=== PATIENT | female | born 1960 | race Caucasian/White ===

== ENCOUNTER 2018-06-12 06:48 | Emergency (ER) | payer BC, OTHER ==
--- OUTSIDE RECORDS SUMMARY | 2018-06-12 06:51 | XMS REPORT | Clinical Summary ---
:1960 Author Organization [facility] Address [address] [place] [address] Care Team Providers Name Role Phone Aaliyah Bingham MD Primary Care Provider Allergies Active Allergy Reactions Severity Noted Date Comments Cranberry Extract 10/01/2017 Splotchy red spots Dpt-Haemophilus 05/06/2017 Pt was 4 year old.cannot Ps(Tet.Conj.) remember well. Medications Medication Sig Dispensed Refills Start End Date Status Date carvedilol (COREG) 12.5 Take 12.5 mg 0 Active MG tablet by mouth 2 (two) times a day with meals. buPROPion XL Take 300 mg by 0 Active (WELLBUTRIN XL) 300 MG mouth daily. 24 hr tablet pantoprazole (PROTONIX) Take 40 mg by 0 Active 40 MG EC tablet mouth daily. nitroglycerin Place 0.4 mg 0 Active (NITROSTAT) 0.4 MG SL under the tablet tongue every 5 (five) minutes as needed for chest pain. gabapentin (NEURONTIN) Take 600 mg by 0 Active 300 mg capsule mouth nightly. losartan (COZAAR) 25 MG Take 70 mg by 0 Active tablet mouth daily. atorvastatin (LIPITOR) Take 80 mg by 0 Active 80 MG tablet mouth daily. DIGOX 125 mcg tablet TK 1 T PO D 3 Active 8 isosorbide mononitrate Take 30 mg by 0 Active (IMDUR) 30 MG 24 hr mouth daily. tablet clonazepam (KLONOPIN Take by mouth. 0 Active ORAL) apixaban (ELIQUIS) 5 mg Take 1 tablet 60 tablet 12 Active tablet (5 mg total) 8 by mouth 2 (two) times a day. aspirin (ECOTRIN) 81 MG Take 81 mg by 0 02/03/20 Discontinued enteric coated tablet mouth daily. 18 rOPINIRole XL (REQUIP Take 2 mg by 0 09/27/19 Discontinued XL) 2 MG 24 hr tablet mouth nightly. 18 isosorbide mononitrate Take 30 mg by 0 09/27/19 Discontinued (IMDUR) 30 MG 24 hr mouth daily. 18 tablet acetaminophen (TYLENOL) Take 325 mg by 0 09/27/19 Discontinued 325 MG tablet mouth every 6 18 (six) hours as needed for mild pain or headaches. famotidine (PEPCID) 20 Take 1 tablet 60 tablet 0 06/25/19 MG tablet (20 mg total) 8 18 by mouth 2 (two) times a day for 30 days. lorcaserin (BELVIQ) 10 Take 10 mg by 0 09/27/19 Discontinued mg tablet mouth 2 (two) 18 times a day. ALPRAZolam (XANAX) 0.25 Take 1 tablet 0 09/27/19 Discontinued MG tablet by mouth as 8 18 needed for anxiety. clopidogrel (PLAVIX) 75 Take 75 mg by 0 08/01/19 Discontinued mg tablet mouth daily. 18 cranberry extract Theracran 650 mg capsule 0 10/02/19 Discontinued (THERACRAN) 650 mg Take 1 capsule every day by oral route. 18 capsule aspirin (ASPIR-LOW) 81 Aspir-Low 81 mg tablet,delayed release 0 Discontinued MG enteric coated Take 1 tablet every day by oral route. 18 tablet buPROPion XL Wellbutrin XL 300 mg 24 hr tablet, extended release 0 09/26 Discontinued (WELLBUTRIN XL) 300 MG Take 1 tablet every day by oral route. 18 24 hr tablet losartan (COZAAR) 100 TK 1 T PO D 1 09/27/19 Discontinued MG tablet 8 18 clopidogrel (PLAVIX) 75 Take 75 mg by 0 02/03/20 Discontinued mg tablet mouth daily. 18 methylPREDNISolone Take 4 mg by 0 11/05/19 Discontinued (MEDROL DOSEPAK) 4 mg mouth 2 (two) 18 tablet times a day. follow package directions HYDROcodone-acetaminoph Take 1 tablet 0 02/03/20 Discontinued en (NORCO) 10-325 mg by mouth every 18 per tablet 6 (six) hours as needed for moderate pain. carisoprodol (SOMA) 350 Take 350 mg by 0 11/05/19 Discontinued MG tablet mouth 4 (four) 18 times a day as needed for muscle spasms. Active Problems Problem Noted Date Follow-up examination following surgery 03/16/2018 Visit for wound check 12/08/2017 Left lumbar radiculopathy 09/29/2017 HNP (herniated nucleus pulposus), lumbar 09/29/2017 Weakness 05/01/2017 Transient ischemic attack 05/01/2017 Resolved Problems Problem Noted Date Resolved Date Foot drop, left 10/20/2017 01/29/2018 Encounters Date Type Specialty Care Team Description 03/16/2018 Office Visit Neurosurgery Francisco Ruelas Visit for wound check ( Primary Dx); MD Brendan Follow-up examination following surgery 2018 Telephone Neurosurgery Jadyn Cox LVN 02/06/2018 Hospital Encounter Radiology Francisco Ruelas Lumbar radiculopathy MD Brendan 02/03/2018 Hospital Encounter Radiology Lalita, Breast lump Bradford Stoddard MD 02/03/2018 Hospital Encounter Radiology Lalita, Breast lump Bradford Stoddard MD 02/02/2018 Office Visit Neurology Gal Pimentel MD TIA (transient ischemic attack) (Primary Dx) 01/30/2018 Orders Only Francisco Parson MD 01/29/2018 Office Visit Francisco Parson Weakness (Primary Dx); MD Brendan Left lumbar radiculopathy 01/29/2018 Orders Only Francisco Parson Lumbar radiculopathy MD Brendan (Primary Dx) 01/20/2018 Telephone Neurosurgery Jadyn Cox LVN 12/25/2017 Transcribe Orders Access Coselli, Breast lump (Primary Bradford Stoddard MD Dx) 12/08/2017 Office Visit Francisco Parson Lumbar radiculopathy, chronic (Primary Dx); MD Brendan Weakness; Visit for wound check 11/05/2017 Telephone Neurosurgery Jadyn Cox LVN 11/04/2017 Surgery General Surgery Francisco Ruelas POSTERIOR LUMBAR MD Brendan LAMNECTOMY AND DISCECTOMY LEFT L5-S1, POSSIBLE L4-L5 11/04/2017 Anesthesia Event General Surgery Vidal Agosto APRN 11/04/2017 Hospital Encounter General Surgery Francisco Ruelas Herniated lumbar MD Brendan intervertebral disc 10/22/2017 Orders Only Neurosurgery Francisco Ruelas Antalgic gait MD Brendan (Primary Dx) 10/20/2017 Office Visit Neurosurgery Francisco Ruelas HNP (herniated nucleus pulposus), lumbar (Primary Dx); MD Brendan Lumbar radiculopathy, chronic; Weakness; Foot drop, left 09/30/2017 Transcribe Orders Procedural Torey, Cardiology Srikanth Shelton, 09/29/2017 Hospital Encounter Radiology Francisco Ruelas MD 09/29/2017 Pre-Admit Testing Pre-Admission Francisco Ruelas Pre-op testing Appointment Testing MD Brendan (Primary Dx) 09/29/2017 Office Visit Neurosurgery Francisco Ruelas Transient cerebral ischemia, unspecified type (Primary Dx); MD Brendan Weakness; Lumbar radiculopathy, chronic; HNP (herniated nucleus pulposus), lumbar 09/29/2017 Hospital Encounter Radiology Francisco Ruelas Lumbar radiculopathdaisy Cardona MD 09/29/2017 Hospital Encounter Radiology Francisco Ruelas Lumbar radiculopathdaisy Cardona MD 09/29/2017 Orders Only Neurosurgery Francisco Ruelas Lumbar radiculongoc Cardona MD (Primary Dx) 09/26/2017 Abstract Neurosurgery Jadyn Cox LVN 07/31/2017 Office Visit Neurology Gal Pimentel MD Transient cerebral ischemia, unspecified type (Primary Dx) after 06/11/2017 Family History Medical History Relation Name Comments Cancer Father Hypertension Mother Restless legs syndrome Mother Stroke Mother Relation Name Status Comments Father Mother Social History Tobacco Use Types Packs/Day Years Used Date Never Smoker Smokeless Tobacco: Never Used Alcohol Use Drinks/Week oz/Week Comments Yes social Sex Assigned at Date Recorded Not on file Job Start Date Occupation Industry Not on file Not on file Not on file Travel History Travel Start Travel End No recent travel history available. Last Filed Vital Signs Vital Sign Reading Time Taken Blood Pressure 114/78 02/02/2018 2:19 PM [employer] [employer] [facility] Pulse 72 02/02/2018 2:19 PM [employer] [employer] [facility] Temperature 36.5 C (97.7 F) 11/04/2017 11:39 AM CDT Respiratory Rate 17 11/04/2017 11:39 AM CDT Oxygen Saturation 98% 11/04/2017 11:39 AM CDT Inhaled Oxygen Concentration - - Weight 67.6 kg (149 lb) 02/06/2018 11:24 AM [facility] [employer] [facility] Height 157.5 cm (5' 2") 02/02/2018 2:19 PM [employer] [employer] Body Mass Index 27.25 02/06/2018 11:24 AM [facility] [employer] [facility] Plan of Treatment Date Type Specialty Care Team Description 08/03/2018 Office Visit Neurology Gal Pimentel MD [id number] [place] [address] Health Maintenance Due Date Last Done Comments CERVICAL CANCER SCREENING 02/11/1980 COLON CANCER SCREENING 2009 SHINGLES VACCINES (#1) 2009 INFLUENZA VACCINE 09/24/2018 BREAST CANCER SCREENING 02/04/2020 02/03/2018, 02/03/2018, 10/15/2016, Additional history exists Implants Implanted Type Area Professional Engineer Device Shelf Model / Identifier Expiration Serial / Date Lot System Reveal Linq W/Monitors - [id number] Cardiac N/A: [employer] 2018 LINQSYS / Implanted: 05/06/2017 (Quantity not on file) Pacemakers and N/A CARDIAC RHYTHM / Related Products DISEASE MGMT [id number] System Spine Selnt For Dural Selng Exact 5ml Duraseal - [id number] Cardiovascular N/A: [employer]RA [id number] / Implanted: 11/04/2017 (Quantity not on file) Implants N/A LIFESCIENCE / NEURO [id number] Procedures Procedure Name Priority Date/Time Associated Diagnosis Comments MRI LUMBAR SPINE W WO Routine 02/06/2018 12:28 Lumbar radiculopathy Results for this CONTRAST PM [employer] procedure are in the results section. US BREAST COMPLETE Routine 02/03/2018 9:44 Breast lump Results for this RIGHT AM [employer] [employer] [facility] procedure are in the results section. MAMMO BREAST Routine 02/03/2018 9:18 Breast lump Results for this DIAGNOSTIC AM [employer] [employer] [facility] procedure are in TOMOSYNTHESIS the results BILATERAL section. SURGICAL PATHOLOGY Routine 11/04/2017 11:59 Results for this REQUEST AM CDT procedure are in the results section. XR LUMBAR SPINE 1 VW Routine 11/04/2017 8:25 Results for this AM CDT procedure are in the results section. XR LUMBAR SPINE 1 VW Routine 11/04/2017 8:20 Results for this AM CDT procedure are in the results section. XR LUMBAR SPINE 1 VW Routine 11/04/2017 8:10 Results for this AM CDT procedure are in the results section. MA AN ELECTIVE Routine 11/04/2017 8:08 ENDOTRACHEAL AIRWAY AM CDT Procedure Note - Karine Keenan MD - 11/04/2017 8:08 AM CDT Airway Date/Time: 11/04/2017 8:10 AM Performed by: KARINE KEENAN Authorized by: KARINE KEENAN Location: OR Urgency: Elective Difficult Airway: No Anesthesiologist: KARINE KEENAN Preoxygenated with 100% O2: Yes C-spine Precautions Maintained Throughout: No Mask Ventilation: Easy mask Final Airway Type: Endotracheal airway Final Endotracheal Airway: ETT Cuffed: Yes Technique Used: Direct laryngoscopy Devices/Methods Used in Placement: Intubating stylet Insertion Site: Oral Blade Type: Lee Laryngoscope Blade/Videolaryngoscope Blade Size: 2 ETT Size (mm): 7.0 Cuff at minimum occlusion pressure: Yes Measured from: Lips ETT to Lips (cm): 21 Placement Verified by: CO2 detection, direct visualization and equal breath sounds Rapid Sequence Induction (RSI): No Modified RSI: No Number of Attempts at Approach: 1 Single uncomplicated attempt at intubation without apparent damage to soft tissue or teeth LAMINECTOMY, LUMBAR 11/04/2017 7:30 AM CDT Herniated lumbar intervertebral disc Case Notes PRONE POSITION, MICROSCOPE, BARB FRAME Special Needs PRONE POSITION, MICROSCOPE, BARB FRAME ECG 12-LEAD Routine 09/29/2017 5:25 PM Results for this CDT procedure are in the results section. ZZESTIMATED GFR Routine 09/29/2017 4:33 PM Results for this CDT procedure are in the results section. BASIC METABOLIC Routine 09/29/2017 4:33 PM Pre-op testing Results for this PANEL CDT procedure are in the results section. CBC HEMOGRAM Routine 09/29/2017 4:33 PM Pre-op testing Results for this CDT procedure are in the results section. XR LUMBAR SPINE AP Routine 09/29/2017 1:35 PM Lumbar radiculopathy Results for this LATERAL FLEXION AND CDT procedure are in EXTENSION the results section. XR SPINE SCOLIOSIS Routine 09/29/2017 1:35 PM Lumbar radiculopathy Results for this 2-3 VIEWS CDT procedure are in the results section. MRI SPINE EXTERNAL Routine 09/16/2017 3:50 PM Results for this STUDY CDT procedure are in the results section. after 06/11/2017 Results MRI Lumbar Spine W Wo Contrast (02/06/2018 12:28 PM [facility] TECH) Narrative Performed At EXAMINATION: MRI LUMBAR SPINE W WO CONTRAST [facility] CLINICAL HISTORY: M54.16 Radiculopathylumbar region, lumbar radiculopathy COMPARISON:None TECHNIQUE: Multiplanar multisequence nonenhanced and contrast enhanced MRI examination was performed of the lumbar spine. FINDINGS: There are 5 non-rib bearing lumbar type vertebrae. Status post left foraminotomy. No fracture. No subluxation. No suspicious osseous abnormality. Modic type II endplate changes L1 to and L5-S1. No subluxation.No suspicious osseous lesions. Conus medullaris terminates at the level of L2. No suspicious enhancement. Evaluation of the visualized soft tissues demonstrates no mass, adenopathy or aneurysm. Axial images through the disc spaces demonstrate the following: L1-L2: Small disc bulge without significant spinal canal, subarticular zone, or neural foraminal stenosis. L2-L3: No significant posterior disc disease, spinal canal, subarticular zone, or neural foraminal stenosis. L3-L4: No significant posterior disc disease, spinal canal, subarticular zone, or neural foraminal stenosis. Mild facet arthropathy. L4-L5: Severe left and moderate right facet arthropathy and small disc bulge contributes to mild bilateral neural foraminal stenosis without significant spinal canal or subarticular zone stenosis. L5-S1: Status post left foraminotomy. There is enhancement of the left foraminotomy site, consistent with postsurgical epidural fibrosis, with effacement of perineural fat. There is moderate left neural foraminal stenosis secondary to endplate osteophytes, disc bulge, and facet arthropathy. Fluid at the left foraminotomy site also in part contributes to left neural foraminal stenosis. There is no significant subarticular zone stenosis. No sig nificant spinal canal or right subarticular zone stenosis. There is mild right neural foraminal stenosis secondary to small disc bulge, endplate osteophytes, and moderate facet arthropathy. IMPRESSION: 1. Post surgical changes L5-S1 status post left foraminotomy. There is effacement of perineural fat at this level with enhancement, consistent with postsurgical epidural fibrosis. Disc bulge, endplate osteophytes, and residual facet arthropathy contributes to moderate left neural foraminal stenosis at this level. 2. Additional multilevel degenerative changes above with few levels of mild neural foraminal stenosis. [id number] Procedure Note Hm Interface, Radiology Results Incoming - 02/06/2018 2:27 PM [facility] TECH EXAMINATION: MRI LUMBAR SPINE W WO CONTRAST CLINICAL HISTORY: M54.16 Radiculopathy lumbar region, lumbar radiculopathy COMPARISON: None TECHNIQUE: Multiplanar multisequence nonenhanced and contrast enhanced MRI examination was performed of the lumbar spine. FINDINGS: There are 5 non-rib bearing lumbar type vertebrae. Status post left foraminotomy. No fracture. No subluxation. No suspicious osseous abnormality. Modic type II endplate changes L1 to and L5-S1. No subluxation. No suspicious osseous lesions. Conus medullaris terminates at the level of L2. No suspicious enhancement. Evaluation of the visualized soft tissues demonstrates no mass, adenopathy or aneurysm. Axial images through the disc spaces demonstrate the following: L1-L2: Small disc bulge without significant spinal canal, subarticular zone, or neural foraminal stenosis. L2-L3: No significant posterior disc disease, spinal canal, subarticular zone, or neural foraminal stenosis. L3-L4: No significant posterior disc disease, spinal canal, subarticular zone, or neural foraminal stenosis. Mild facet arthropathy. L4-L5: Severe left and moderate right facet arthropathy and small disc bulge contributes to mild bilateral neural foraminal stenosis without significant spinal canal or subarticular zone stenosis. L5-S1: Status post left foraminotomy. There is enhancement of the left foraminotomy site, consistent with postsurgical epidural fibrosis, with effacement of perineural fat. There is moderate left neural foraminal stenosis secondary to endplate osteophytes, disc bulge, and facet arthropathy. Fluid at the left foraminotomy site also in part contributes to left neural foraminal stenosis. There is no significant subarticular zone stenosis. No significant spinal canal or right subarticular zone stenosis. There is mild right neural foraminal stenosis secondary to small disc bulge, endplate osteophytes, and moderate facet arthropathy. IMPRESSION: 1. Post surgical changes L5-S1 status post left foraminotomy. There is effacement of perineural fat at this level with enhancement, consistent with postsurgical epidural fibrosis. Disc bulge, endplate osteophytes, and residual facet arthropathy contributes to moderate left neural foraminal stenosis at this level. 2. Additional multilevel degenerative changes above with few levels of mild neural foraminal stenosis. [id number] Performing Organization Address City/[facility] Centercode Phone Number [facility] [address] [place] [address] US Breast Complete Right (02/03/2018 9:44 AM [facility]TRAL SERVICES TECH) Narrative Performed At PROCEDURE: MAMMO BREAST DIAGNOSTIC TOMOSYNTHESIS BILATERAL, US BREAST [facility] COMPLETE RIGHT Right real-time whole breast sonography included all four quadrants and the retroareolar region under close supervision by the radiologist. Computer aided detection was utilized for the interpretation. HISTORY:57-year-old female presenting with right breast tenderness and palpable lump in the lateral right breast. Patient has a history of bilateral reduction mammoplasty. COMPARISON: 10/15/2016-02/03/2012 DENSITY: There are scattered fibroglandular tissue. FINDINGS Mammogram:A triangular marker was placed in the right upper-outer quadrant at posterior depth, indicating the site of the palpable area of concern. This marker correlates with benign-appearing fatty tissue by mammography. There is no significant change in either breast when compared to previous examinations. Bilateral post reduction mammoplasty changes are demonstrated in both breasts. There is a radiopaque medical assisting instructor in the inner posterior left breast which partially obscures breast parenchyma. Ultrasound: No suspicious cystic or solid masses were seen in the right breast. Specifically, no sonographic correlate is identified in the palpable area of concern, located in the right upper-outer quadrant. IMPRESSION: 1. Palpable area of concern in the right breast correlates with benign-appearing fatty tissue. Clinical correlation is recommended. 2. No mammographic evidence of malignancy in either breast. RECOMMENDATION: Annual mammography. BI-RADS 2: BENIGN This report was dictated by Shama Urias M.D., radiology fellow, under the supervision of, Deanna Peña M.D. staff radiologist. [facility]-[id number] Performing Organization Address City/[facility]/Zipcode Phone Number [facility] [address] [place] [address] Mammo Breast Diagnostic Tomosynthesis Bilateral (02/03/2018 9:18 AM [facility]TRAL SERVICES TECH) Narrative Performed At PROCEDURE: MAMMO BREAST DIAGNOSTIC TOMOSYNTHESIS BILATERAL, US BREAST HM [facility] COMPLETE RIGHT Right real-time whole breast sonography included all four quadrants and the retroareolar region under close supervision by the radiologist. Computer aided detection was utilized for the interpretation. HISTORY:57-year-old female presenting with right breast tenderness and palpable lump in the lateral right breast. Patient has a history of bilateral reduction mammoplasty. COMPARISON: 10/15/2016-02/03/2012 DENSITY: There are scattered fibroglandular tissue. FINDINGS Mammogram:A triangular marker was placed in the right upper-outer quadrant at posterior depth, indicating the site of the palpable area of concern. This marker correlates with benign-appearing fatty tissue by mammography. There is no significant change in either breast when compared to previous examinations. Bilateral post reduction mammoplasty changes are demonstrated in both breasts. There is a radiopaque medical assisting instructor in the inner posterior left breast which partially obscures breast parenchyma. Ultrasound: No suspicious cystic or solid masses were seen in the right breast. Specifically, no sonographic correlate is identified in the palpable area of concern, located in the right upper-outer quadrant. IMPRESSION: 1. Palpable area of concern in the right breast correlates with benign-appearing fatty tissue. Clinical correlation is recommended. 2. No mammographic evidence of malignancy in either breast. RECOMMENDATION: Annual mammography. BI-RADS 2: BENIGN This report was dictated by Shama Urias M.D., radiology fellow, under the supervision of, Deanna Peña M.D. staff radiologist. [facility]-[id number] Performing Organization Address City/State/Zipcode Phone Number [facility] [address] [place] [address] Surgical pathology request (11/04/2017 11:59 AM CDT) [facility] DEPARTMENT OF PATHOLOGY AND GENOMIC MEDICINE Surgical pathology report See link below for PDF [facility] DEPARTMENT OF Lab Report PATHOLOGY AND GENOMIC MEDICINE Result status This is Final Report [facility] DEPARTMENT OF for [id number] PATHOLOGY AND GENOMIC MEDICINE Performing Organization Address City/State/Zipcode Phone Number [facility] DEPARTMENT OF PATHOLOGY AND [address] [place] [address] GENOMIC MEDICINE XR Lumbar Spine 1 Vw (11/04/2017 8:25 AM CDT)Only the most recent of3 resultswithin the time period is included. Narrative Performed At EXAMINATION: XR LUMBAR SPINE 1 VW [facility] CLINICAL HISTORY: Lumbar region back pain and radiculopathy COMPARISON:Intraoperative exam from earlier today. FINDINGS: There are radiopaque instruments in the posterior paraspinal soft tissues at the L5 level. One instrument tip overlaps the posterior inferior L5 vertebral body. There are degenerative changes in the lumbar spine. IMPRESSION: Lateral intraoperative radiograph of the lumbar spine for localization during lumbar spine surgery. [facility]-[id number] Procedure Note Hm Interface, Radiology Results Incoming - 11/04/2017 11:54 AM CDT EXAMINATION: XR LUMBAR SPINE 1 VW CLINICAL HISTORY: Lumbar region back pain and radiculopathy COMPARISON: Intraoperative exam from earlier today. FINDINGS: There are radiopaque instruments in the posterior paraspinal soft tissues at the L5 level. One instrument tip overlaps the posterior inferior L5 vertebral body. There are degenerative changes in the lumbar spine. IMPRESSION: Lateral intraoperative radiograph of the lumbar spine for localization during lumbar spine surgery. [facility]-[id number] Performing Organization Address [facility] Centercomi Phone Number [facility] [address] [place] [address] ECG 12 lead (09/29/2017 5:25 PM CDT) Ventricular rate 59 [facility] Atrial rate 59 [facility] MA interval 136 [facility] QRSD interval 74 [facility] QT interval 410 [facility] QTC interval 405 [facility] P axis 1 60 [facility] QRS axis 1 16 [facility] T wave axis 57 [facility] EKG impression Sinus bradycardia-Otherwise normal ECG-In [facility] MUSE automated comparison with ECG of 25-MAY-2017 00:46,-No significant change was found- Performing Organization Address [facility] Centercode Phone Number [facility] MUSE [address] [place] [address] Estimated GFR (09/29/2017 4:33 PM CDT) GFR Non Af Amer 86 mL/min/1.73 m2 [facility] DEPARTMENT OF PATHOLOGY AND GENOMIC MEDICINE GFR Af Amer >90 mL/min/1.73 m2 [facility] DEPARTMENT OF Comment: PATHOLOGY AND GENOMIC Chronic kidney disease: <60 mL/min/1.73m2 MEDICINE Kidney failure: <15 mL/min/1.73m2 The estimated GFR is calculated from the IDMS-traceable Modification of Diet in Renal Disease Equation. The accuracy of the calculation is poor when the creatinine is normal. Calculated values >90 mL/min/1.73m2 are not reported. This equation has not been validated in children (<18 years), women, the elderly (>70 years), or ethnic groups other than Caucasians and Americans. Specimen Plasma specimen Performing Organization Address City/[facility]/Zipcode Phone Number [facility] DEPARTMENT OF PATHOLOGY AND [address] [place] [phone] [place] CBC hemogram (09/29/2017 4:33 PM CDT) WBC 11.10 (H) 4.50 - 11.00 k/uL [facility] DEPARTMENT OF PATHOLOGY AND GENOMIC MEDICINE RBC 4.30 4.20 - 5.50 m/uL [facility] DEPARTMENT OF PATHOLOGY AND GENOMIC MEDICINE HGB 13.3 12.0 - 16.0 g/dL [facility] DEPARTMENT OF PATHOLOGY AND GENOMIC MEDICINE HCT 40.4 37.0 - 47.0 % [facility] DEPARTMENT OF PATHOLOGY AND GENOMIC MEDICINE MCV 94.0 82.0 - 100.0 fL [facility] DEPARTMENT OF PATHOLOGY AND GENOMIC MEDICINE MCH 30.9 27.0 - 34.0 pg [facility] DEPARTMENT OF PATHOLOGY AND GENOMIC MEDICINE MCHC 32.9 31.0 - 37.0 g/dL [facility] DEPARTMENT OF PATHOLOGY AND GENOMIC MEDICINE RDW - SD 44.1 37.0 - 55.0 fL [facility] DEPARTMENT OF PATHOLOGY AND GENOMIC MEDICINE MPV 10.3 8.8 - 13.2 fL [facility] DEPARTMENT OF PATHOLOGY AND GENOMIC MEDICINE Platelet count 309 150 - 400 k/uL [facility] DEPARTMENT OF PATHOLOGY AND GENOMIC MEDICINE Nucleated RBC 0.00 /100 WBC [facility] DEPARTMENT OF PATHOLOGY AND GENOMIC MEDICINE Specimen Blood Performing Organization Address City/[facility]/Zipcode Phone Number [facility] DEPARTMENT OF PATHOLOGY AND [address] [place] [id number] [place] Basic metabolic panel (09/29/2017 4:33 PM CDT) Sodium 138 135 - 148 mEq/L [facility] DEPARTMENT OF PATHOLOGY AND GENOMIC MEDICINE Potassium 4.1 3.5 - 5.0 mEq/L [facility] DEPARTMENT OF PATHOLOGY AND GENOMIC MEDICINE Chloride 99 98 - 112 mEq/L [facility] DEPARTMENT OF PATHOLOGY AND GENOMIC MEDICINE CO2 28 24 - 31 mEq/L [facility] DEPARTMENT OF PATHOLOGY AND GENOMIC MEDICINE Anion gap 11@ANIO 7 - 15 mEq/L [facility] DEPARTMENT OF PATHOLOGY AND GENOMIC MEDICINE BUN 16 6 - 20 mg/dL [facility] DEPARTMENT OF PATHOLOGY AND GENOMIC MEDICINE Creatinine 0.7 0.5 - 0.9 mg/dL [facility] DEPARTMENT OF PATHOLOGY AND GENOMIC MEDICINE Glucose 69 65 - 99 mg/dL [facility] DEPARTMENT OF PATHOLOGY AND GENOMIC MEDICINE Calcium 9.5 8.3 - 10.2 mg/dL [facility] DEPARTMENT OF PATHOLOGY AND GENOMIC MEDICINE Specimen Plasma specimen Performing Organization Address City/[facility] Phone Number [facility] DEPARTMENT OF PATHOLOGY AND [address] [place] [address] [facility] XR Lumbar Spine Ap Lateral Flexion And Extension (09/29/2017 1:35 PM CDT) Narrative Performed At EXAMINATION:XR LUMBAR SPINE AP LATERALFLEXION AND EXTENSION [facility] CLINICAL HISTORY:M54.16 Radiculopathylumbar region, Back painprior surgerynew or progressive sx COMPARISON:None. IMPRESSION: There are 5 nonrib-bearing lumbar vertebrae. There is diffuse lumbar disc space narrowing with anterior osteophyte formation. There is minimal anterior spondylolisthesis at L5-S1. There is slight movement upon flexion and extension with range of motion of approximately 5 to 6 mm There is no obvious spondylolysis defect. There is no compression fracture [facility]-[id number] Procedure Note Interface, Radiology Results Incoming - 09/29/2017 2:42 PM CDT EXAMINATION: XR LUMBAR SPINE AP LATERAL FLEXION AND EXTENSION CLINICAL HISTORY: M54.16 Radiculopathy lumbar region, Back pain prior surgery new or progressive sx COMPARISON: None. IMPRESSION: There are 5 nonrib-bearing lumbar vertebrae. There is diffuse lumbar disc space narrowing with anterior osteophyte formation. There is minimal anterior spondylolisthesis at L5-S1. There is slight movement upon flexion and extension with range of motion of approximately 5 to 6 mm There is no obvious spondylolysis defect. There is no compression fracture [facility]-[id number] Performing Organization Address [facility] Centercode Phone Number [facility] [address] [place] [address] XR Spine Scoliosos 2-3 Views (09/29/2017 1:35 PM CDT) Narrative Performed At EXAMINATION:XR SPINE SCOLIOSIS 2-3 VIEWS [facility] CLINICAL HISTORY:M54.16 Radiculopathylumbar region, radiculopathy COMPARISON:None. Frontal and lateral views of entire spine was obtained per scoliosis protocol. IMPRESSION: There is mild broad-based for degree leftward curvature at T12-L1. No significant scoliosis identified. Fusion hardware is noted in the lower cervical spine from C5 to C7. There is 0 coronal balance. Femoral head heights are symmetric. Aorta is tortuous. Cardiac implant device is noted in the anterior chest for monitoring. Lungs are clear. Bowel gas pattern is nonobstructive. Lateral image shows no compression deformity. There is 1 cm negative sagittal balance. [facility]-[id number] Procedure Note Hm Interface, Radiology Results Incoming - 09/29/2017 3:10 PM CDT EXAMINATION: XR SPINE SCOLIOSIS 2-3 VIEWS CLINICAL HISTORY: M54.16 Radiculopathy lumbar region, radiculopathy COMPARISON: None. Frontal and lateral views of entire spine was obtained per scoliosis protocol. IMPRESSION: There is mild broad-based for degree leftward curvature at T12-L1. No significant scoliosis identified. Fusion hardware is noted in the lower cervical spine from C5 to C7. There is 0 coronal balance. Femoral head heights are symmetric. Aorta is tortuous. Cardiac implant device is noted in the anterior chest for monitoring. Lungs are clear. Bowel gas pattern is nonobstructive. Lateral image shows no compression deformity. There is 1 cm negative sagittal balance. [facility]-[id number] Performing Organization Address [facility]/Zipcode Phone Number [facility] [address] [place] [address] MRI Spine External Study (09/16/2017 3:50 PM CDT) Narrative Performed At This exam was not acquired at a [facility] facility and has not been [facility] interpreted by a [facility] Provider.The exam was imported into our imaging system for comparisons purposes. Performing Organization Address City/[facility]/Zipcode Phone Number [facility] [address] [place] [address] after 06/11/2017 Insurance Payer Benefit Plan / Group Subscriber ID Type Phone Address AETNA AETNA HMO,POS,EPO, MC/EC xxxxxxxxxx HMO Advance Directives Patient has advance care planning documents, and code status on file. For more information, please contact:[place] [address] Code Status Date Activated Date Inactivated Comments Full Code 11/04/2017 9:40 AM 11/04/2017 7:41 PM Code Status decision reached by: Patient
--- OUTSIDE RECORDS SUMMARY | 2018-06-12 06:52 | XMS REPORT | Summary of Care ---
:1960 Author Organization [facility] Internal Medicine [facility] Address [address], [address] [place] [address]- Encounter HQ Benitantr_jed(FIN) [id number] Date(s): 04/15/18 - 04/16/18 [facility] Internal [facility] [address] [place] [address]- [phone] Vital Signs No data available for this section Problem List Condition Effective Dates Status Health Status Informant Acute cystitis(Confirmed) Active Acute sinus infection(Confirmed) Active Acute pharyngitis(Confirmed) Active Adjustment disorder with depressed Active mood(Confirmed) Adjustment disorder with Active anxiety(Confirmed) A-fib(Confirmed) Active CRP elevated(Confirmed) Active Thrush(Confirmed) Active Cognitive changes(Confirmed) Active Low serum vitamin D(Confirmed) Active Dyspnea(Confirmed) Active H/O Prinzmetal angina(Confirmed) Active Fever blister(Confirmed) Active H/O TIA (transient ischemic attack) Resolved and stroke(Confirmed) Hypertension(Confirmed) Active Hypoxemia(Confirmed) Active IGT (impaired glucose Active tolerance)(Confirmed) Lumbar strain(Confirmed) Active Left leg weakness(Confirmed) Active Myalgia(Confirmed) Active Obesity(Confirmed) Active Cough(Confirmed) Active DANNY (obstructive sleep Active apnea)(Confirmed) Osteopenia(Confirmed) Active Overweight(Confirmed) Active Paresthesia(Confirmed) Active Lumbar herniated disc(Confirmed) Active Spondylosis(Confirmed) Active Transient ischemic attack(Confirmed) Active Restless legs syndrome Active (RLS)(Confirmed) Allergies, Adverse Reactions, Alerts Substance Reaction Severity Status tetanus toxoid Active Medications No data available for this section Results No data available for this section Immunizations No data available for this section Procedures Procedure Date Related Diagnosis Body Site Status Lumpectomy 10/2017 Completed Upper GI endoscopy 08/20/13 Completed Colonoscopy 02/05/10 Completed Biopsy of breast1 Completed Lumpectomy2 Completed Primary fusion of cervical spine3 Completed Reduction mammoplasty4 Completed 1(Left) Results Benign, [id number] Social History Social History Type Response Substance Abuse Use: None. Exercise Exercise frequency: Daily. Exercise type: Walking. Employment/School Status: Retired. Work/School description: [employer]. Alcohol Current, Type Liquor.1 Smoking Status Never smoker; Exposure to Tobacco Smoke None; Cigarette Smoking Last 365 Days No; Reg Smoking Cessation Counseling No entered on: 03/27/18 1social drinker Assessment and Plan No data available for this section
--- OUTSIDE RECORDS SUMMARY | 2018-06-12 06:52 | XMS REPORT | Summary of Care ---
:1960 Author Organization [facility] Address [address] [place], [place] [id number] Encounter HQ Edgar_jed(FIN) [id number] Date(s): 04/15/18 - 04/15/[address] Discharge Disposition: Home or Self Care Attending Physician: Aaliyah Bingham MD Referring Physician: Aaliyah Bingham MD Vital Signs No data available for this [...] Completed Reduction mammoplasty4 Completed 1(Left) Results Benign, [id number] Social History Social History Type Response Substance Abuse Use: None. Exercise Exercise frequency: Daily. Exercise type: Walking. Employment/School Status: Retired. Work/School description: [employer]. Alcohol Current, Type Liquor.1 Smoking Status Never smoker; Exposure to Tobacco Smoke None; Cigarette Smoking Last 365 Days No; Reg Smoking Cessation Counseling No entered on: 03/27/18 1social drinker Assessment and Plan No data available for this section
--- OUTSIDE RECORDS SUMMARY | 2018-06-12 06:52 | XMS REPORT | Continuity of Care Document ---
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 10/19/19 [facility] ADJUSTMENT 18 DISORDER WITH ANX Paresthesia of 09/21/19 04/05/2018 [facility] skin 18 [place] R20.2 - Active 09/13/19 [facility] PARESTHESIA OF 18 [place] SKIN NEUROPSYCHOLOGY Active 02/24/19 [facility] 01 Acute cystitis Active Problem 05/29/2018 Medical Group, [facility] Acute sinus Active Problem 05/29/2018 infection Medical Group, [facility] Acute pharyngitis Active Problem 05/29/2018 Medical Group, [facility] Adjustment Active Problem 05/29/2018 disorder with Medical depressed mood Group, [facility] Adjustment Active Problem 05/29/2018 disorder with Medical anxiety Group, [facility] CRP elevated Active Problem 05/29/2018 Medical Group, [facility] Thrush Active Problem 05/29/2018 [facility] Group, [facility] Cognitive changes Active Problem 05/29/2018 Medical Group, [facility] Dyspnea Active Problem 05/29/2018 Medical Group, [facility] H/O Prinzmetal Active Problem 05/29/2018 angina Medical Group, [facility] Fever blister Active Problem 05/29/2018 Medical Group, [facility] H/O TIA and Resolved Problem 05/29/2018 stroke(<span Medical ID="[id number]"> Group, Confirmed</span>) [facility] Hypertension Active Problem 05/29/2018 Medical Group, [facility] Hypoxemia Active Problem 05/29/2018 Medical Group, [facility] IGT (<span Active Problem 05/29/2018 ID="[id number]"> Medical Confirmed</span>) Group, [facility] Lumbar strain Active Problem 05/29/2018 [facility], [facility],Mis abdoul Neuro Left leg weakness Active Problem 05/29/2018 [facility] Myalgia Active Problem 05/29/2018 Medical Group, [facility] Obesity Active Problem 05/29/2018 Medical Group, [facility] Cough Active Problem 05/29/2018 Medical Group, [facility] DANNY (<span Active Problem 05/29/2018 ID="[id number]">C Medical onfirmed</span>) Group, [facility] Osteopenia Active Problem 05/29/2018 Medical Group, [facility] Overweight Active Problem 05/29/2018 Medical Group, [facility] Paresthesia Active Problem 05/29/2018 [facility] Neuro Lumbar herniated Active Problem 05/29/2018 disc 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[place] disc degeneration, lumbar region Acute cystitis Active Problem 05/04/2018 Medical Group, Akash Sims [facility] Acute sinus Active Problem 05/04/2018 infection Medical Group, Akash Sims [facility] Acute pharyngitis Active Problem 05/04/2018 Medical Group, Akash Simser Neuro Adjustment Active Problem 05/04/2018 disorder with Medical depressed mood Group, Akash Simser Neuro Adjustment Active Problem 05/04/2018 disorder with Medical anxiety Group, Akash Sims [facility] CRP elevated Active Problem 05/04/2018 Medical Group, FRANCESErma Akash Paul [facility]cher [facility] Thrush Active Problem 05/04/2018 Medical Group, NAN PaulAkash ischer Neuro Cognitive changes Active Problem 05/04/2018 Medical Group, Akash Sims ischer Neuro Dyspnea Active Problem 05/04/2018 Medical Group, Akash Sims ischer Neuro H/O Prinzmetal Active Problem 05/04/2018 angina Medical Group, FRANCESErma Akash Paul [facility] Fever blister Active Problem 05/04/2018 Medical Group, Akash Sims ischer Neuro H/O TIA and Resolved Problem 05/04/2018 stroke(<span Medical ID="[id number]"> Group, Confirmed</span>) FRANCESErma PaulAkash ischer Neuro Hypertension Active Problem 05/04/2018 Medical Group, NAN HooverannAkash ischer Neuro Hypoxemia Active Problem 05/04/2018 Medical Group, NAN HooverannAkash ischer Neuro IGT (<span Active Problem 05/04/2018 ID="[id number]"> Medical Confirmed</span>) Group, NAN PaulAkash ischer Neuro Myalgia Active Problem 05/04/2018 Medical Group, NAN PaulAkash ischer Neuro Obesity Active Problem 05/04/2018 Medical Group, FRANCESErma [place] [facility] Cough Active Problem 05/04/2018 Medical Group, NAN HooverannAkash ischer Neuro DANNY (<span Active Problem 05/04/2018 ID="[id number]">C Medical onfirmed</span>) Group, NAN PaulAkash ischer Neuro Osteopenia Active Problem 05/04/2018 Medical Group, NAN PaulM ischer Neuro Overweight Active Problem 05/04/2018 Medical Group, NAN PaulM ischer Neuro Spondylosis Active Problem 05/04/2018 Medical Group, NAN PaulAkash ischer Neuro Transient ischemic Active Problem 05/04/2018 attack Medical Group, NAN PaulM ischer Neuro Restless legs Active Problem 05/04/2018 syndrome (<span Medical ID="[id number]"> Group,MH Confirmed</span>) Akash Sims ischer Neuro Medications Medication Details Route Status Patient Ordering Order Source Instructions Provider Date vilazodone 20 mg=1 Active MH hydrochloride 20 tab, PO, 019 Medical MG Oral Tablet Daily, # 7 Group [Viibryd] tab, 0 Refill(s), given to patient vilazodone 20 mg=1 Active MH hydrochloride 20 tab, PO, 019 Medical MG Oral Tablet Daily, # 30 Group [Viibryd] tab, 1 Refill(s), Pharmacy: [facility] [id number] valacyclovir 1000 2 gm=2 tab, Active MH MG Oral Tablet PO, Q12H, 019 Medical [Valtrex] take 2 po Group ALEXANDRA for fever blister then repeat in 12 hours . total 4 per course.,, # 8 tab, 5 Refill(s), Pharmacy: [facility] [address] rOPINIRole 2 mg See Active MH oral tablet, Instruction 019 Medical extended release s, TAKE 1 Group TABLET BY MOUTH DAILY, # 90 tab, 3 Refill(s), Pharmacy: [facility] [address] losartan 100 mg =1 tab, PO, Active MH oral tablet Daily, # 90 019 Medical tab, 3 Group Refill(s), Pharmacy: [facility] [address] lorcaserin 10 mg=1 Active MH hydrochloride 10 tab, PO, 019 Medical MG Oral Tablet BID, # 60 Group [Belviq] tab, 2 Refill(s) carvedilol 12.5 See Active MH mg oral tablet Instruction 019 Medical s, TAKE 1 Group TABLET BY MOUTH TWICE DAILY, # 180 tab, 2 Refill(s), Pharmacy: [facility] [address] buPROPion 300 =1 tab, PO, Active MH mg/24 hours (XL) Daily, # 90 019 Medical oral tablet, tab, 3 Group extended release Refill(s), Pharmacy: [facility] [address] isosorbide 30 mg=1 Active MH mononitrate 30 mg tab, PO, 019 Medical oral tablet, QAM, # 90 Group extended release tab, 3 Refill(s), [facility] [address] atorvastatin 80 80 mg=1 Active MH MG Oral Tablet tab, PO, 019 Medical [Lipitor] Bedtime, # Group 90 tab, 3 Refill(s), [facility] [address] dexlansoprazole 60 mg=1 Active MH 60 MG Enteric cap, PO, 019 Medical Coated Capsule Daily, # 30 Group [Dexilant] cap, 11 Refill(s), [facility] [id number] Solu-Medrol 40 mg, Inactive MH Route: IM, 018 Medical ONCE, Group Dosing Weight 66.477, kg, Start date: 09/12/17 14:17:00 CDT, Stop date: 09/12/17 14:17:00 CDT clonazePAM 0.25 0.25 mg=1 No Longer MH mg oral tablet, tab, PO, Active 018 Medical disintegrating TID, prn Group anxiety, # 30 tab, 0 Refill(s) tramadol 50 mg=1 No Longer MH hydrochloride 50 tab, PO, Active 018 Medical MG Oral Tablet Q6H, PRN Group Pain, X 10 day, # 40 tab, 0 Refill(s) Carisoprodol 350 350 mg=1 No Longer MH MG Oral Tablet tab, PO, Active 018 Medical [Soma] Bedtime, X Group 21 day, # 21 tab, 0 Refill(s) meloxicam 15 mg 15 mg=1 No Longer MH oral tablet tab, PO, Active 018 Medical Daily, # 30 Group tab, 1 Refill(s), [facility] [address] lorcaserin 10 mg=1 Active MH hydrochloride 10 tab, PO, 018 Medical MG Oral Tablet BID, # 60 Group [Belviq] tab, 1 Refill(s) lorcaserin 10 mg=1 Active MH hydrochloride 10 tab, PO, 018 Medical MG Oral Tablet BID, # 60 Group [Belviq] tab, 1 Refill(s) losartan 100 mg 100 mg=1 Active MH oral tablet tab, PO, 018 Medical Daily, # 90 Group tab, 1 Refill(s), Pharmacy: [facility] [id number] atorvastatin 80 80 mg=1 Active MH MG Oral Tablet tab, PO, 018 Medical [Lipitor] Bedtime, # Group 30 tab, 0 Refill(s) clopidogrel 75 MG 75 mg=1 Active MH Oral Tablet tab, PO, 018 Medical [Plavix] Daily, # 30 Group tab, 0 Refill(s) lorcaserin 10 mg=1 Active MH hydrochloride 10 tab, PO, 018 Medical MG Oral Tablet BID, # 60 Group [Belviq] tab, 2 Refill(s) lorcaserin 10 mg=1 Active MH hydrochloride 10 tab, PO, 018 Medical MG Oral Tablet BID, # 60 Group [Belviq] tab, 2 Refill(s) pantoprazole 40 See Active MH mg oral enteric Instruction 018 Medical coated tablet s, # 90 Group tab, TAKE 1 TABLET BY MOUTH DAILY, Pharmacy: [facility] [id number] valacyclovir 1000 2 gm=2 tab, Active MH MG Oral Tablet PO, Q12H, 017 Medical [Valtrex] take 2 po Group ALEXANDRA for fever blister then repeat in 12 hours . total 4 per course.,, # 8 tab, 1 Refill(s), Pharmacy: [facility] [address] lorcaserin 10 mg=1 Active MH hydrochloride 10 tab, PO, 017 Medical MG Oral Tablet BID, # 60 Group [Belviq] tab, 2 Refill(s) 24 HR Bupropion 300 mg=1 Active MH Hydrochloride 300 tab, PO, 017 Medical MG Extended Daily, # 90 Group Release Tablet tab, 3 [Wellbutrin] Refill(s), Pharmacy: [facility] [address] 24 HR Bupropion 300 mg=1 Inactive MH Hydrochloride 300 tab, PO, 017 Medical MG Extended Daily, # 60 Group Release Tablet tab, 0 [Wellbutrin] Refill(s) valacyclovir 1000 2 gm=2 tab, Active MH MG Oral Tablet PO, Q12H, 017 Medical [Valtrex] take 2 po Group ALEXANDRA for fever blister then repeat in 12 hours . total 4 per course., # 4 tab, 0 Refill(s), Pharmacy: [facility] [address] Nitrofurantoin 100 mg=1 Active MH 100 MG Oral cap, PO, 017 Medical Capsule BID, X 7 Group [Macrobid] day, # 14 cap, 0 Refill(s), Pharmacy: [facility] [address] Allergies, Adverse Reactions, Alerts Substance Category Reaction Severity Reaction Status Date Comments Source type Reported tetanus Assertion Drug Active [facility] toxoid allergy Immunizations Immunization Date Given Site Status Last Updated Comments Source Results Order Results Value Reference Date Interpretation Comments Source Name Range Spine Spine ADDENDUM: 09/16 - [facility] lumbar lumbar /2017 - [place] w/wo w/wo This report was dictated by a Hot Kettle Tender/Fellow. I have personally reviewed the images as contrast contrast well as the Resident's interpretation and agree with the findings. MRI MRI At L5-S1 on the left, there is a disc extrusion with superior migration in the far lateral neuroforaminal zone with compression of the exiting left L5 nerve root. Read by: Sahara Reis MD Resident: Sahara Reis MD Dictated Date/time: 10/22/17 11:30 Electronically Signed by: Zacarias Avery MD 10/23/17 09:04 FINAL REPORT Ordering physician is aware about this finding. - - This report was dictated by a Hot Kettle Tender/Fellow. I have personally reviewed the images as well as the Resident's interpretation and agree with the findings. EXAM: MRI LUMBAR SPINE WITH AND WITHOUT CONTRAST Read by: Govind Darden MD Resident: Govind Darden MD Dictated Date/time: 09/17/17 08:35 Electronically Signed by: Zacarias Avery MD 09/17/17 21:48 FINAL REPORT DATE: 09/16/2017 1550 hours INDICATION: - stenosis, left lower ext numbness COMPARISON: None available TECHNIQUE: Sagittal T1, sagittal T2, sagittal T2 with fat saturation, axial T1, and axial T2-weighted images of the lumbar spine are obtained with and contrast. IV contrast: 13 cc Dotarem DISCUSSION: Normal lumbar segmentation is assumed with the lowest fully formed intervertebral disc space labeled as L5-S1 for the purpose of this examination. Vertebral alignment is anatomic. Vertebral heights are preserved. There is no significant bone marrow signal abnormality. Fatty marrow changes are noted at the opposing L1-L2 and L5-S1 endplates. The conus medullaris terminates at the L1-L2 disc space. It has a normal contour and normal signal characteristics. No intradural pathology is identified. No abnormal leptomeningeal enhancement is identified. Disc spaces, spinal canal and neural foramina are as follows: T12-L1: Normal disc signal with preservation of the disc height. No evidence of spinal canal stenosis. No significant facet hypertrophy. No significant neural foramina stenosis. L1-L2: Mild diffuse disc bulge is noted with normal disc signal and mild loss of the disc height. No evidence of spinal canal stenosis. Mild bilateral facet hypertrophy is seen. No significant neural foramina stenosis. L2-L3: Mild diffuse disc bulge is noted with normal disc signal with preservation of the disc height. No evidence of spinal canal stenosis. No significant facet hypertrophy. No significant neural foramina stenosis. L3-L4: Mild diffuse disc bulge is noted with normal disc signal and preservation of the disc height. No evidence of spinal canal stenosis. Mild bilateral facet hypertrophy and ligamentum flavum hypertr ophy is noted. Minimal bilateral bridgett-facet enhancement is noted without evidence of abnormal enhancement within the facet joint or articular processes. No significant neural foramina stenosis. L4-L5: Mild diffuse disc bulge is noted with normal disc signal and preservation of the disc height. No evidence of spinal canal stenosis. No significant facet hypertrophy is noted. Mild/moderate bilat eral bridgett-facet enhancement is noted without evidence of abnormal signal within the facet joint or within the articular processes. No significant neural foramina stenosis. L5-S1: Moderate diffuse disc bulge is noted with associated minimal loss of disc height and disc desiccation. No evidence of spinal canal stenosis. No significant facet hypertrophy. Mild bilateral neur al foraminal narrowing with superior displacement of the bilateral exiting L5 nerve roots secondary to diffuse disc bulge is noted without evidence of nerve root impingement. Both SI joints appear unremarkable. No significant abnormality within the visualized paraspinous musculature. There is no evidence of hydronephrosis bilaterally. IMPRESSION: 1. Mild bilateral neural foraminal narrowing at L5-S1 secondary to diffuse disc bulge with superior displacement of the L5 nerve roots. No impingement of the nerve roots. 2. Mild to moderate bilateral bridgett-facet enhancement at L4-L5 with mild bilateral bridgett-facet enhancement at L3-L4 without evidence of abnormal enhancement within the facet joints and articular processe s. Findings are most consistent with inflammatory changes. 3. Moderate degenerative disc disease at L5-S1 with disc height loss. 4. Mild degenerative disc disease with disc height loss at L1-L2 and mild degenerative disc disease with preservation of disc height at L2-L3, L3-L4 and L4-L5. Vital Signs Vital Sign Value Date Comments Source BMI Calculated 28.21 03/27/2018 Medical Group Weight 67.727 03/27/2018 Medical Group Height 154.94 cm 03/27/2018 Medical Group Temperature Oral (F) 98.6 F 03/27/2018 Medical Group Heart Rate 88 03/27/2018 Medical Group Respitory Rate 17 03/27/2018 Medical Group Systolic (mm Hg) 105 03/27/2018 Medical Group Diastolic (mm Hg) 61 03/27/2018 Medical Group Respitory Rate 18 09/12/2017 Medical Group Temperature Oral (F) 98 F 09/12/2017 Medical Group Heart Rate 58 09/12/2017 Medical Group Systolic (mm Hg) 135 09/12/2017 Medical Group Diastolic (mm Hg) 89 09/12/2017 Medical Group Weight 66.477 07/02/2017 Medical Group BMI Calculated 27.69 07/02/2017 Medical Group Height 154.94 cm 07/02/2017 Medical Group Temperature Oral (F) 98.9 F 07/02/2017 Medical Group Heart Rate 89 07/02/2017 Medical Group Systolic (mm Hg) 154 07/02/2017 Medical Group Diastolic (mm Hg) 95 07/02/2017 Medical Group Height 154.94 cm 02/03/2017 Medical Group BMI Calculated 28.26 02/03/2017 Medical Group Weight 67.841 02/03/2017 Medical Group Respitory Rate 18 02/03/2017 Medical Group Heart Rate 56 02/03/2017 Medical Group Systolic (mm Hg) 126 02/03/2017 Medical Group Diastolic (mm Hg) 84 02/03/2017 Medical Group Encounters Location Location Encounter Encounter Reason Attending ADM DC Status Source Details Type Number For Provider Date Date Visit Outpatient [id number] AALIYAH 09/22 [facility] [place] [facility]patient [id number] AALIYAH 11/08 [facility] [place] [facility]patient [id number] AALIYAH [facility]/06 [facility] [place] [facility] [id number] AALIYAH 04/17 [facility] [place] [facility] [id number] AALIYAH 04/17 [facility] [place] [facility] [id number] AALIYAH 05/24 [facility] [place] [facility] [id number] AALIYAH 06/21 [facility] [place] Out[facility] [id number] AALIYAH 06/22 [facility] [place] [facility] [id number] AALIYAH 08/22 [facility] [place] [facility] [id number] AALIYAH 10/03 [facility] [place] [facility] [id number] AALIYAH 10/11 [facility] [place] [facility] [id number] AALIYAH 11/22 [facility] [place] [facility] [id number] AALIYAH 01/03 [facility] [place] [facility] [id number] AALIYAH 02/12 [facility] [place] [facility] [id number] AALIYAH 05/20 [facility] [place] [facility] [id number] AALIYAH 07/04 [facility] [place] Out[facility] [id number] AALIYAH 08/19 [facility] [place] [facility] [id number] AALIYAH 09/20 [facility] [place] [facility] [id number] AALIYAH 11/28 [facility] [place] [facility] Phone [id number] 01/13 01/15 Internal Message /2016 [facility] Phone [id number] 01/13 01/15 Internal Message /2016 [facility] Phone [id number] 01/17 01/19 Internal Message /2016 [facility] [id number] 01/17 01/19 Internal Message /2016 [facility] Medicine Group [facility] Outpatient [id number] AALIYAH 02/03 [facility] [place] [facility] Outpatient [id number] Aaliyah 02/03 02/04 [facility]2016 [facility] [id number] 03/26 03/28 Internal Message /2017 [facility] Phone [id number] 04/30 05/02 Internal Message /2017 [facility] Medicine Group [facility] Phone [id number] 04/30 05/02 MH Internal Message /2017 [facility] Medicine Group [facility] Outpatient [id number] 05/01 [facility] [place] [facility] Ambulatory [id number] 05/01 MH Internal Pre-Reg [facility] /2017 [facility] Medicine Group [facility] Phone [id number] 06/10 06/12 MH Internal Message /2017 Medical Medicine Group [facility] Phone [id number] 06/17 06/19 MH Internal Message /2017 Medical Medicine Group [facility] Phone [id number] 06/18 06/20 MH Internal Message /2017 Medical Medicine Group [facility] Phone [id number] 06/20 06/22 Internal Message /2017 Medical Medicine Group [facility] Phone [id number] 06/20 06/22 Internal Message /2017 Medical Medicine Group [facility] Outpatient [id number] 07/02 [facility] [place] [facility] Outpatient [id number] 07/02 Internal [facility] /2017 [facility] Medicine Group [facility] Phone [id number] 07/23 07/25 Internal Message /2017 Medical Medicine Group [facility] Phone [id number] 08/05 08/07 Internal Message /2017 Medical Medicine Group [facility] Outpatient [id number] 09/12 Active [facility] [place] [facility] Outpatient [id number] 09/12 Internal [facility] Phone [id number] 09/16 09/18 Internal Message /2017 Medical Medicine Group [facility] Outpt Diag [id number] 09/16 MH [facility] Outpatient Services [facility] [place] [facility] Phone [id number] 09/17 09/19 [facility] Message /2017 Neuro y [facility] Phone [id number] 09/19 09/21 MH Internal Message /2017 Medical Medicine Group [facility] Ambulatory [id number] 10/15 08/22 [facility] Pre-Reg /2017 Neuro y [facility] Outpatient [id number] AALIYAH 12/18 [facility] [place] Outpatient [id number] AALIYAH 02/04 [facility] [place] [facility] Outpatient [id number] Aaliyah 03/16 03/17 MH [facility]2018 [place] [facility] Outpatient [id number] AALIYAH 03/27 [facility] [place] [facility] Outpatient [id number] Aaliyah 03/27 03/28 Internal [facility] /2018 [facility] Phone [id number] 04/01 04/03 Internal Message /2018 [facility] Outpatient [id number] Aaliyah 04/15 04/16 MH [facility]2018 [facility] Phone [id number] 04/15 04/17 Internal Message /2018 Medical Medicine [facility] Outpatient [id number] Aaliyah 04/29 04/30 [facility] /2018 [place] [facility] Outpatient [id number] Aaliyah 05/27 05/28 MH [facility] /2018 [place] Procedures Procedure Code Date Perfomer Comments Source Lumpectomy [id number] 10/25/2017 [facility] Lumpectomy [id number] 10/25/2017 Medical Group Lumpectomy 149453764 10/25/2017 [facility] [place] Lumpectomy [id number] 10/25/2017 [facility] Upper GI endoscopy [id number] 08/20/2013 Medical Group Upper GI endoscopy [id number] 08/20/2013 [facility] Upper GI endoscopy [id number] 08/20/2013 [facility] [place] Upper GI endoscopy [id number] 08/20/2013 [facility] Colonoscopy [id number] 02/05/2010 Medical Group Colonoscopy [id number] 02/05/2010 [facility] Colonoscopy [id number] 02/05/2010 [facility] [place] Colonoscopy [id number] 02/05/2010 [facility] Biopsy of [id number] (Left) Results Medical breast<sup>1</sup> Benign, 2012 Group Lumpectomy<sup>2</ [id number] 2004 Medical sup> Group Primary fusion of [id number] 2006 Medical cervical Group spine<sup>3</sup> Reduction [id number] 2007 Medical mammoplasty<sup>4< Group /sup> Biopsy of [id number] (Left) Results [facility] breast<sup>1</sup> Benign, 2012 Lumpectomy<sup>2</ [id number] 2004 [facility] sup> Primary fusion of [id number] 2006 [facility] cervical spine<sup>3</sup> Reduction [id number] 2007 [facility] mammoplasty<sup>4< /sup> Biopsy of [id number] (Left) Results [facility] breast<sup>1</sup> Benign, 2012 [place] Lumpectomy<sup>2</ [id number] 2004 [facility] sup> [place] Primary fusion of [id number] 2006 [facility] cervical [place] spine<sup>3</sup> Reduction [id number] 2007 [facility] mammoplasty<sup>4< [place] /sup> Biopsy of [id number] (Left) Results [facility] breast<sup>1</sup> Benign, 2012 Lumpectomy<sup>2</ [id number] 2004 [facility] sup> Primary fusion of [id number] 2006 [facility] cervical spine<sup>3</sup> Reduction [id number] 2007 [facility] mammoplasty<sup>4< /sup>
--- OUTSIDE RECORDS SUMMARY | 2018-06-12 06:53 | XMS REPORT | Summary of Care ---
:1960 Author Organization [facility] Internal Medicine [facility] Address [address] [place] [address], [facility] [[email or web address]] [address] [place] [address]- Encounter HQ Addisonr_jed(FIN) [phone] Date(s): 01/13/17 - 01/14/17 [facility] Internal Medicine [place] [id number] [facility], [address] [place] [address]- Vital Signs No data available for this section Problem List Condition Effective Dates Status Health Status Informant Acute cystitis(Confirmed) Active Acute sinus infection(Confirmed) Active Acute pharyngitis(Confirmed) Active Adjustment disorder with depressed Active mood(Confirmed) Adjustment disorder with Active anxiety(Confirmed) CRP elevated(Confirmed) Active Thrush(Confirmed) Active Dyspnea(Confirmed) Active H/O Prinzmetal angina(Confirmed) Active Fever blister(Confirmed) Active Hypertension(Confirmed) Active Hypoxemia(Confirmed) Active IGT (impaired glucose Active tolerance)(Confirmed) Myalgia(Confirmed) Active Obesity(Confirmed) Active Cough(Confirmed) Active DANNY (obstructive sleep Active apnea)(Confirmed) Osteopenia(Confirmed) Active Overweight(Confirmed) Active Spondylosis(Confirmed) Active Restless legs syndrome Active (RLS)(Confirmed) Allergies, Adverse Reactions, Alerts Substance Reaction Severity Status tetanus toxoid Active Medications No data available for this section Results No data available for this section Immunizations No data available for this section Procedures Procedure Date Related Diagnosis Body Site Upper GI endoscopy 08/20/13 Colonoscopy 02/05/10 Biopsy of breast1 Lumpectomy2 Primary fusion of cervical spine3 Reduction mammoplasty4 1(Left) Results Benign, [id number] Social History Social History Type Response Substance Abuse Use: None. Exercise Exercise frequency: 1-2 times/week. Alcohol Current, Type Liquor.1 Smoking Status Never smoker; Exposure to Tobacco Smoke None; Cigarette Smoking Last 365 Days No; Reg Smoking Cessation Counseling No 1social drinker Assessment and Plan No data available for this section
--- OUTSIDE RECORDS SUMMARY | 2018-06-12 06:53 | XMS REPORT | Summary of Care ---
:1960 Author Organization [facility] Internal Medicine [facility] Address [address] [place] [address], [facility] [address] [place] [address]- Encounter HQ Benitantr_jed(FIN) [phone] Date(s): 01/17/17 - 01/18/17 [facility] Internal Medicine [place] [address] [facility], [address] [place] [address]- [phone] Vital Signs No data available for this [...] cervical spine3 Reduction mammoplasty4 1(Left) Results Benign, [id number] Social History Social History Type Response Substance Abuse Use: None. Exercise Exercise frequency: 1-2 times/week. Alcohol Current, Type Liquor.1 Smoking Status Never smoker; Exposure to Tobacco Smoke None; Cigarette Smoking Last 365 Days No; Reg Smoking Cessation Counseling No 1social drinker Assessment and Plan No data available for this section
--- OUTSIDE RECORDS SUMMARY | 2018-06-12 06:53 | XMS REPORT | Summary of Care ---
:1960 Author Organization [facility] Internal Medicine [facility] Address [address] [place] [address], [address] [place] [address]- Encounter HQ Edgar_jed(FIN) [phone] Date(s): 06/20/17 - 06/21/17 [facility] Internal Medicine [facility] [address] [facility] [place] [address]- Vital Signs No data available for this [...] Procedure Date Related Diagnosis Body Site Status Upper GI endoscopy 08/20/13 Completed Colonoscopy 02/05/10 Completed Biopsy of breast1 Completed Lumpectomy2 Completed Primary fusion of cervical spine3 Completed Reduction mammoplasty4 Completed 1(Left) Results Benign, [id number] Social History Social History Type Response Substance Abuse Use: None. Exercise Exercise frequency: 1-2 times/week. Alcohol Current, Type Liquor.1 Smoking Status Never smoker; Exposure to Tobacco Smoke None; Cigarette Smoking Last 365 Days No; Reg Smoking Cessation Counseling No entered on: 02/03/17 1social drinker Assessment and Plan No data available for this section
--- OUTSIDE RECORDS SUMMARY | 2018-06-12 06:53 | XMS REPORT | Summary of Care ---
:1960 Author Organization [facility] Internal Medicine [facility] Address [address] [place] [address], [address] [place] [address]- Encounter HQ Edgar_jed(FIN) [id number] Date(s): 06/17/17 - 06/18/17 [facility] Internal Medicine [facility] [address] [facility] [address] [place] [address]- Vital Signs No data available for this [...] Completed Reduction mammoplasty4 Completed 1(Left) Results Benign, [id number] Social History Social History Type Response Substance Abuse Use: None. Exercise Exercise frequency: 1-2 times/week. Alcohol Current, Type Liquor.1 Smoking Status Never smoker; Exposure to Tobacco Smoke None; Cigarette Smoking Last 365 Days No; Reg Smoking Cessation Counseling No entered on: 02/03/17 1social drinker Assessment and Plan No data available for this section
--- OUTSIDE RECORDS SUMMARY | 2018-06-12 06:53 | XMS REPORT | Summary of Care ---
:1960 Author Organization [facility] Internal Medicine [facility] Address [address] [place] [address], [facility] [address] [place] [address]- Encounter HQ Edgar_jed(FIN) [id number] Date(s): 01/17/17 - 01/18/17 [facility] Internal Medicine [place] [address] [facility], [address] [place] [address]- Vital Signs No data available for this [...] Reaction Severity Status tetanus toxoid Active Medications Valtrex 1 g oral tablet 2 gm=2 tab, PO, Q12H, take 2 po ALEXANDRA for fever blister then repeat in 12 hours . total 4 per course., # 4 tab, 0 Refill(s), Pharmacy: [facility] [id number] Start Date: 01/17/17 Stop Date: 01/18/17 Status: Ordered Results No data available for this section Immunizations No data available for this section Procedures Procedure Date Related Diagnosis Body Site Upper GI endoscopy 08/20/13 Colonoscopy 02/05/10 Biopsy of breast1 Lumpectomy2 Primary fusion of cervical spine3 Reduction mammoplasty4 1(Left) Results Benign, [id number] Social History Social History Type Response Substance Abuse Use: None. Exercise Exercise frequency: 1-2 times/week. Alcohol Current, Type Liquor.1 Smoking Status Never smoker; Exposure to Tobacco Smoke None; Cigarette Smoking Last 365 Days No; Reg Smoking Cessation Counseling No 1social drinker Assessment and Plan No data available for this section
--- OUTSIDE RECORDS SUMMARY | 2018-06-12 06:53 | XMS REPORT | Summary of Care ---
:1960 Author Organization [facility] Address [address] [place], [place] [address] Encounter HQ Edgar_jed(FIN) [id number] Date(s): 05/27/18 - 05/27/[address] FU [phone] Discharge Disposition: Home or Self Care Attending [...] Completed Reduction mammoplasty4 Completed 1(Left) Results Benign, [id number] Social History Social History Type Response Substance Abuse Use: None. Exercise Exercise frequency: Daily. Exercise type: Walking. Employment/School Status: Retired. Work/School description: [employer]. Alcohol Current, Type Liquor.1 Smoking Status Never smoker; Exposure to Tobacco Smoke None; Cigarette Smoking Last 365 Days No; Reg Smoking Cessation Counseling No entered on: 03/27/18 1social drinker Assessment and Plan No data available for this section
--- OUTSIDE RECORDS SUMMARY | 2018-06-12 06:53 | XMS REPORT | Summary of Care ---
:1960 Author Organization [facility] Internal Medicine [facility] Address [address] [place] [address], [address] [place] [address]- Encounter HQ Edgar_jed(FIN) [id number] Date(s): 06/10/17 - 06/11/17 [facility] Internal Medicine [facility] [address] [facility] [place] [address]- Vital Signs No data available for this [...] Reaction Severity Status tetanus toxoid Active Medications Belviq 10 mg oral tablet 10 mg=1 tab, PO, BID, # 60 tab, 2 Refill(s) Start Date: 06/10/17 Status: Ordered Results No data available for this section Immunizations No data available for this section Procedures Procedure Date Related Diagnosis Body Site Status Upper GI endoscopy 08/20/13 Completed Colonoscopy 02/05/10 Completed Biopsy of breast1 Completed Lumpectomy2 Completed Primary fusion of cervical spine3 Completed Reduction mammoplasty4 Completed 1(Left) Results Benign, [id number] Social History Social History Type Response Substance Abuse Use: None. Exercise Exercise frequency: 1-2 times/week. Alcohol Current, Type Liquor.1 Smoking Status Never smoker; Exposure to Tobacco Smoke None; Cigarette Smoking Last 365 Days No; Reg Smoking Cessation Counseling No entered on: 02/03/17 1social drinker Assessment and Plan No data available for this section
--- OUTSIDE RECORDS SUMMARY | 2018-06-12 06:53 | XMS REPORT | Summary of Care ---
:1960 Author Organization [facility] Internal Medicine [facility] Address [address] [place] [address], [facility] [address] [place] [address]- Encounter HQ Benitantr_jed(FIN) [phone] Date(s): 01/13/17 - 01/14/17 [facility] Internal Medicine [facility] [address] [facility], [address] [place] [address]- Vital Signs No data available for this [...] Reaction Severity Status tetanus toxoid Active Medications Macrobid 100 mg oral capsule 100 mg=1 cap, PO, BID, X 7 day, # 14 cap, 0 Refill(s), Pharmacy: [facility] [id number] Start Date: 01/13/17 Stop Date: 01/20/17 Status: Ordered Results No data available for this section Immunizations No data available for this section Procedures Procedure Date Related Diagnosis Body Site Upper GI endoscopy 08/20/13 Colonoscopy 02/05/10 Biopsy of breast1 Lumpectomy2 Primary fusion of cervical spine3 Reduction mammoplasty4 1(Left) Results Benign, [id number] Social History Social History Type Response Substance Abuse Use: None. Exercise Exercise frequency: 1-2 times/week. Alcohol Current, Type Liquor.1 Smoking Status Never smoker; Exposure to Tobacco Smoke None; Cigarette Smoking Last 365 Days No; Reg Smoking Cessation Counseling No 1social drinker Assessment and Plan No data available for this section
--- OUTSIDE RECORDS SUMMARY | 2018-06-12 06:53 | XMS REPORT | Summary of Care ---
:1960 Author Organization [facility] Internal Medicine [facility] Address [address] [place] [address], [address] [place] [address]- Encounter HQ Edgar_jed(FIN) [id number] Date(s): 06/18/17 - 06/19/17 [facility] Internal Medicine [facility] [address] [facility] [place] [address]- Vital Signs No data available for this [...] Completed Reduction mammoplasty4 Completed 1(Left) Results Benign, [id number] Social History Social History Type Response Substance Abuse Use: None. Exercise Exercise frequency: 1-2 times/week. Alcohol Current, Type Liquor.1 Smoking Status Never smoker; Exposure to Tobacco Smoke None; Cigarette Smoking Last 365 Days No; Reg Smoking Cessation Counseling No entered on: 02/03/17 1social drinker Assessment and Plan No data available for this section
--- OUTSIDE RECORDS SUMMARY | 2018-06-12 06:53 | XMS REPORT | Summary of Care ---
:1960 Author Organization [facility] Internal Medicine [facility] Address [address] [place] [address] [address] [place] [address]- Encounter HQ Edgar_jed(FIN) [id number] Date(s): 02/03/17 - 02/03/17 [facility] Internal Medicine [place] [address] [facility], [address] [place] [address]- Discharge Disposition: Home or Self Care Attending Physician: Aaliyah Bingham MD Vital Signs Most recent to oldest [Reference Range]: 1 Height 154.94 cm (02/03/17 1:18 PM) Blood Pressure [90-140/60-90 mmHg] 126/84 mmHg (02/03/17 1:18 PM) Respiratory Rate [14-20 BRMIN] 18 BRMIN (02/03/17 1:18 PM) Peripheral Pulse Rate [60-100 bpm] 56 bpm *LOW* (02/03/17 1:18 PM) Weight 67.841 kg (02/03/17 1:18 PM) Body Mass Index 28.26 m2 (02/03/17 1:18 PM) Problem List Condition Effective Dates Status Health [...] # 60 tab, 2 Refill(s) Start Date: 02/03/17 Status: OrderedValtrex 1 g oral tablet 2 gm=2 tab, PO, Q12H, take 2 po ALEXANDRA for fever blister then repeat in 12 hours . total 4 per course.,, # 8 tab, 1 Refill(s), Pharmacy: [facility] [id number] Start Date: 02/03/17 Status: OrderedWellbutrin XL 300 mg/24 hours oral tablet, extended release 300 mg=1 tab, PO, Daily, # 60 tab, 0 Refill(s) Start Date: 02/03/17 Stop Date: 02/03/17 Status: DiscontinuedWellbutrin XL 300 mg/24 hours oral tablet, extended release 300 mg=1 tab, PO, Daily, # 90 tab, 3 Refill(s), Pharmacy: [facility] [id number] Start Date: 02/03/17 Status: Ordered Results No data available for this section Immunizations No data available for this section Procedures Procedure Date Related Diagnosis Body Site Upper GI endoscopy 08/20/13 Colonoscopy 02/05/10 Biopsy of breast1 Lumpectomy2 Primary fusion of cervical spine3 Reduction mammoplasty4 1(Left) Results Benign, [id number] Social History Social History Type Response Substance Abuse Use: None. Exercise Exercise frequency: 1-2 times/week. Alcohol Current, Type Liquor.1 Smoking Status Never smoker; Exposure to Tobacco Smoke None; Cigarette Smoking Last 365 Days No; Reg Smoking Cessation Counseling No 1social drinker Assessment and Plan No data available for this section
--- OUTSIDE RECORDS SUMMARY | 2018-06-12 06:54 | XMS REPORT | Summary of Care ---
:1960 Author Organization [facility] Internal Medicine [facility] Address [address] [place] [address], [address] [place] [address]- Encounter HQ Edgar_jed(FIN) [id number] Date(s): 07/23/17 - 07/24/17 [facility] Internal Medicine [facility] [address] [facility] [address] [place] [address]- Vital Signs No data available for this section Problem List Condition Effective Dates Status Health Status Informant Acute cystitis(Confirmed) Active Acute sinus infection(Confirmed) Active Acute pharyngitis(Confirmed) Active Adjustment disorder with depressed Active mood(Confirmed) Adjustment disorder with Active anxiety(Confirmed) CRP elevated(Confirmed) Active Thrush(Confirmed) Active Cognitive changes(Confirmed) Active Dyspnea(Confirmed) Active H/O Prinzmetal angina(Confirmed) Active Fever blister(Confirmed) Active H/O TIA (transient ischemic attack) Resolved and stroke(Confirmed) Hypertension(Confirmed) Active Hypoxemia(Confirmed) Active IGT (impaired glucose Active tolerance)(Confirmed) Myalgia(Confirmed) Active Obesity(Confirmed) Active Cough(Confirmed) Active DANNY (obstructive sleep Active apnea)(Confirmed) Osteopenia(Confirmed) Active Overweight(Confirmed) Active Spondylosis(Confirmed) Active Transient ischemic attack(Confirmed) Active Restless legs syndrome Active (RLS)(Confirmed) Allergies, Adverse Reactions, Alerts Substance Reaction Severity Status tetanus toxoid Active Medications Belviq 10 mg oral tablet 10 mg=1 tab, PO, BID, # 60 tab, 1 Refill(s) Start Date: 07/25/17 Status: Ordered Results No data available for this section Immunizations No data available for this section Procedures Procedure Date Related Diagnosis Body Site Status Upper GI endoscopy 08/20/13 Completed Colonoscopy 02/05/10 Completed Biopsy of breast1 Completed Lumpectomy2 Completed Primary fusion of cervical spine3 Completed Reduction mammoplasty4 Completed 1(Left) Results Benign, [id number] Social History Social History Type Response Substance Abuse Use: None. Exercise Exercise frequency: 1-2 times/week. Alcohol Current, Type Liquor.1 Smoking Status Never smoker; Exposure to Tobacco Smoke None; Cigarette Smoking Last 365 Days No; Reg Smoking Cessation Counseling No entered on: 07/02/17 1social drinker Assessment and Plan No data available for this section
--- OUTSIDE RECORDS SUMMARY | 2018-06-12 06:54 | XMS REPORT | Summary of Care ---
:1960 Author Organization [facility] Internal Medicine [facility] [place] [address] [facility], [address] [place] [address]- Encounter HQ Edgar_jed(FIN) [id number] Date(s): 03/26/17 - 03/27/17 [facility] Internal Medicine [facility] [address] [facility] [place] [address]- Vital Signs No data available for this [...] Reaction Severity Status tetanus toxoid Active Medications pantoprazole 40 mg oral enteric coated tablet See Instructions, # 90 tab, TAKE 1 TABLET BY MOUTH DAILY, Pharmacy: [facility] [id number] Start Date: 03/27/17 Status: Ordered Results No data available for this section Immunizations No data available for this section Procedures Procedure Date Related Diagnosis Body Site Status Upper GI endoscopy 08/20/13 Completed Colonoscopy 02/05/10 Completed Biopsy of breast1 Completed Lumpectomy2 Completed Primary fusion of cervical spine3 Completed Reduction mammoplasty4 Completed 1(Left) Results Benign, [id number] Social History Social History Type Response Substance Abuse Use: None. Exercise Exercise frequency: 1-2 times/week. Alcohol Current, Type Liquor.1 Smoking Status Never smoker; Exposure to Tobacco Smoke None; Cigarette Smoking Last 365 Days No; Reg Smoking Cessation Counseling No entered on: 07/02/17 1social drinker Assessment and Plan No data available for this section
--- OUTSIDE RECORDS SUMMARY | 2018-06-12 06:54 | XMS REPORT | Summary of Care ---
:1960 Author Organization [facility] Internal Medicine [facility] Address [address] [facility], [address] [place] [address]- Encounter HQ Edgar_jed(FIN) [id number] Date(s): 07/02/17 - 07/02/17 [facility] Internal Medicine [facility] [address] [facility] [place] [address]- Discharge Disposition: Home or Self Care Attending Physician: Aaliyah Bingham MD Vital Signs Most recent to oldest [Reference Range]: 1 Height 154.94 cm (07/02/17 1:03 PM) Temperature Oral [96.4-99.1 DegF] 98.9 DegF (07/02/17 1:03 PM) Blood Pressure [90-140/60-90 mmHg] 154/95 mmHg *HI* (07/02/17 1:03 PM) Peripheral Pulse Rate [60-100 bpm] 89 bpm (07/02/17 1:03 PM) Weight 66.477 kg (07/02/17 1:03 PM) Body Mass Index 27.69 m2 (07/02/17 1:03 PM) Problem List Condition Effective Dates Status [...] # 60 tab, 1 Refill(s) Start Date: 07/02/17 Status: OrderedLipitor 80 mg oral tablet 80 mg=1 tab, PO, Bedtime, # 30 tab, 0 Refill(s) Start Date: 07/02/17 Status: Orderedlosartan 100 mg oral tablet 100 mg=1 tab, PO, Daily, # 90 tab, 1 Refill(s), Pharmacy: [facility] [id number] Start Date: 07/02/17 Status: OrderedPlavix 75 mg oral tablet 75 mg=1 tab, PO, Daily, # 30 tab, 0 Refill(s) Start Date: 07/02/17 Status: Ordered Results No data available for this section Immunizations No data available for this section Procedures Procedure Date Related Diagnosis Body Site Status Upper GI endoscopy 08/20/13 Completed Colonoscopy 02/05/10 Completed Biopsy of breast1 Completed Lumpectomy2 Completed Primary fusion of cervical spine3 Completed Reduction mammoplasty4 Completed 1(Left) Results Benign, [id number] Social History Social History Type Response Substance Abuse Use: None. Exercise Exercise frequency: 1-2 times/week. Alcohol Current, Type Liquor.1 Smoking Status Never smoker; Exposure to Tobacco Smoke None; Cigarette Smoking Last 365 Days No; Reg Smoking Cessation Counseling No entered on: 07/02/17 1social drinker Assessment and Plan No data available for this section
--- OUTSIDE RECORDS SUMMARY | 2018-06-12 06:54 | XMS REPORT | Summary of Care ---
:1960 Author Organization [facility] Internal Medicine [facility] Address [address] [facility], [address] [place] [address]- Encounter HQ Edgar_jed(FIN) [id number] Date(s): 05/01/17 - 05/01/17 [facility] Internal Medicine [facility] [address] [facility] [place] [address]- Attending Physician: Aaliyah Bingham MD Vital Signs No [...] Completed Reduction mammoplasty4 Completed 1(Left) Results Benign, [id number] Social History Social History Type Response Substance Abuse Use: None. Exercise Exercise frequency: 1-2 times/week. Alcohol Current, Type Liquor.1 Smoking Status Never smoker; Exposure to Tobacco Smoke None; Cigarette Smoking Last 365 Days No; Reg Smoking Cessation Counseling No entered on: 07/02/17 1social drinker Assessment and Plan No data available for this section
--- OUTSIDE RECORDS SUMMARY | 2018-06-12 06:54 | XMS REPORT | Summary of Care ---
:1960 Author Organization [facility] Internal Medicine [facility] Address [address] [facility], [address] [place] [address]- Encounter HQ Edgar_jed(FIN) [id number] Date(s): 07/02/17 - 07/02/17 [facility] Internal Medicine [facility] [address] [facility] [place] [address]- Discharge Disposition: Home or Self Care Attending [...] Daily, # 90 tab, 1 Refill(s), Pharmacy: [facility] [id number] Start Date: 07/02/17 Status: OrderedPlavix 75 mg [...] Completed Reduction mammoplasty4 Completed 1(Left) Results Benign, [id number] Social History Social History Type Response Substance Abuse Use: None. Exercise Exercise frequency: 1-2 times/week. Alcohol Current, Type Liquor.1 Smoking Status Never smoker; Exposure to Tobacco Smoke None; Cigarette Smoking Last 365 Days No; Reg Smoking Cessation Counseling No entered on: 07/02/17 1social drinker Assessment and Plan No data available for this section
--- OUTSIDE RECORDS SUMMARY | 2018-06-12 06:54 | XMS REPORT | Summary of Care ---
:1960 Author Organization [facility] Internal Medicine [facility] Address [address] [facility], [address] [place] [address]- Encounter HQ Edgar_jed(FIN) [id number] Date(s): 06/20/17 - 06/21/17 [facility] Internal Medicine [facility] [address] [facility] [place] [address]- Vital Signs No data available for this [...] Completed Reduction mammoplasty4 Completed 1(Left) Results Benign, [id number] Social History Social History Type Response Substance Abuse Use: None. Exercise Exercise frequency: 1-2 times/week. Alcohol Current, Type Liquor.1 Smoking Status Never smoker; Exposure to Tobacco Smoke None; Cigarette Smoking Last 365 Days No; Reg Smoking Cessation Counseling No entered on: 02/03/17 1social drinker Assessment and Plan No data available for this section
--- OUTSIDE RECORDS SUMMARY | 2018-06-12 06:54 | XMS REPORT | Summary of Care ---
:1960 Author Organization [facility] Internal Medicine [place] Address [address] [place] [address], [address] [place] [address]- Encounter HQ Edgar_jed(FIN) [id number] Date(s): 06/20/17 - 06/21/17 [facility] Internal Medicine [place] [address] [facility] [place] [address]- [phone] Vital Signs No data available for this [...] # 60 tab, 2 Refill(s) Start Date: 06/23/17 Status: Ordered Results No data available for this section Immunizations No data available for this section Procedures Procedure Date Related Diagnosis Body Site Status Upper GI endoscopy 08/20/13 Completed Colonoscopy 02/05/10 Completed Biopsy of breast1 Completed Lumpectomy2 Completed Primary fusion of cervical spine3 Completed Reduction mammoplasty4 Completed 1(Left) Results Benign, [id number] Social History Social History Type Response Substance Abuse Use: None. Exercise Exercise frequency: 1-2 times/week. Alcohol Current, Type Liquor.1 Smoking Status Never smoker; Exposure to Tobacco Smoke None; Cigarette Smoking Last 365 Days No; Reg Smoking Cessation Counseling No entered on: 02/03/17 1social drinker Assessment and Plan No data available for this section
--- OUTSIDE RECORDS SUMMARY | 2018-06-12 06:54 | XMS REPORT | Summary of Care ---
:1960 Author Organization [facility] Address [address] [place], [place] [address] Encounter HQ Edgar_jed(FIN) [id number] Date(s): 04/29/18 - 04/29/[address] [phone] Discharge Disposition: Home or Self Care Attending [...] Completed Reduction mammoplasty4 Completed 1(Left) Results Benign, [id number] Social History Social History Type Response Substance Abuse Use: None. Exercise Exercise frequency: Daily. Exercise type: Walking. Employment/School Status: Retired. Work/School description: [employer]. Alcohol Current, Type Liquor.1 Smoking Status Never smoker; Exposure to Tobacco Smoke None; Cigarette Smoking Last 365 Days No; Reg Smoking Cessation Counseling No entered on: 03/27/18 1social drinker Assessment and Plan No data available for this section
--- OUTSIDE RECORDS SUMMARY | 2018-06-12 06:54 | XMS REPORT | Summary of Care ---
:1960 Author Organization [facility] Internal Medicine [facility] Address [address] [place] [address], [address] [place] [address]- Encounter HQ Edgar_jed(FIN) [id number] Date(s): 06/20/17 - 06/21/17 [facility] Internal Medicine [facility] [address] [facility] [address] [place] [address]- Vital Signs No data available for this [...] Completed Reduction mammoplasty4 Completed 1(Left) Results Benign, [id number] Social History Social History Type Response Substance Abuse Use: None. Exercise Exercise frequency: 1-2 times/week. Alcohol Current, Type Liquor.1 Smoking Status Never smoker; Exposure to Tobacco Smoke None; Cigarette Smoking Last 365 Days No; Reg Smoking Cessation Counseling No entered on: 02/03/17 1social drinker Assessment and Plan No data available for this section
--- OUTSIDE RECORDS SUMMARY | 2018-06-12 06:55 | XMS REPORT | Summary of Care ---
:1960 Author Organization [facility] Internal Medicine [facility] Address [address] [place] [address], [address] [place] [address]- Encounter HQ Addisonr_jed(FIN) [id number] Date(s): 04/30/17 - 05/01/17 [facility] Internal Medicine [facility] [address] [facility] [place] [address]- Vital Signs No data available for this [...] Completed Reduction mammoplasty4 Completed 1(Left) Results Benign, [id number] Social History Social History Type Response Substance Abuse Use: None. Exercise Exercise frequency: 1-2 times/week. Alcohol Current, Type Liquor.1 Smoking Status Never smoker; Exposure to Tobacco Smoke None; Cigarette Smoking Last 365 Days No; Reg Smoking Cessation Counseling No entered on: 07/02/17 1social drinker Assessment and Plan No data available for this section
--- OUTSIDE RECORDS SUMMARY | 2018-06-12 06:55 | XMS REPORT | Summary of Care ---
:1960 Author Organization [facility] Internal Medicine [facility] Address [address] [place] [address], [facility] [address] [place] [address]- Encounter HQ Edgar_jed(FIN) [id number] Date(s): 09/12/17 - 09/12/17 [facility] Internal Medicine [facility] [address] [facility] [place] [address]- Discharge Disposition: Home or Self Care Attending Physician: Aaliyah Bingham MD Vital Signs Most recent to oldest [Reference Range]: 1 Temperature Oral [96.4-99.1 DegF] 98 DegF (09/12/17 1:28 PM) Blood Pressure [90-140/60-90 mmHg] 135/89 mmHg (09/12/17 1:28 PM) Respiratory Rate [14-20 BRMIN] 18 BRMIN (09/12/17 1:28 PM) Peripheral Pulse Rate [60-100 bpm] 58 bpm *LOW* (09/12/17 1:28 PM) Problem List Condition Effective Dates Status [...] Reaction Severity Status tetanus toxoid Active Medications clonazePAM 0.25 mg oral tablet, disintegrating 0.25 mg=1 tab, PO, TID, prn anxiety, # 30 tab, 0 Refill(s) Start Date: 09/12/17 Stop Date: 02/04/18 Status: Discontinuedmeloxicam 15 mg oral tablet 15 mg=1 tab, PO, Daily, # 30 tab, 1 Refill(s), Pharmacy: [id number] Start Date: 09/12/17 Stop Date: 03/27/18 Status: DiscontinuedSolu-MEDROL 40 mg, Route: IM, ONCE, Dosing Weight 66.477, kg, Start date: 09/12/17 14:17:00 CDT, Stop date: 09/12/17 14:17:00 CDT Start Date: 09/12/17 Stop Date: 09/12/17 Status: CompletedSoma 350 mg oral tablet 350 mg=1 tab, PO, Bedtime, X 21 day, # 21 tab, 0 Refill(s) Start Date: 09/12/17 Stop Date: 10/03/17 Status: Completedtramadol 50 mg oral tablet 50 mg=1 tab, PO, Q6H, PRN Pain, X 10 day, # 40 tab, 0 Refill(s) Start Date: 09/12/17 Stop Date: 09/22/17 Status: Completed Results No data available for this section Immunizations No data available for this section Procedures Procedure Date Related Diagnosis Body Site Status Lumpectomy 10/2017 Completed Upper GI endoscopy 08/20/13 Completed Colonoscopy 02/05/10 Completed Biopsy of breast1 Completed Lumpectomy2 Completed Primary fusion of cervical spine3 Completed Reduction mammoplasty4 Completed 1(Left) Results Benign, [id number] Social History Social History Type Response Substance Abuse Use: None. Exercise Exercise frequency: Daily. Exercise type: Walking. 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 Alcohol Current, Type Liquor.1 Smoking Status Never smoker; Exposure to Tobacco Smoke None; Cigarette Smoking Last 365 Days No; Reg Smoking Cessation Counseling No entered on: 03/27/18 1social drinker Assessment and Plan No data available for this section
--- OUTSIDE RECORDS SUMMARY | 2018-06-12 06:55 | XMS REPORT | Summary of Care ---
:1960 Author Organization [facility] Neurosurgery [facility] Address [address] [facility], [address] [place] [address]- Encounter HQ Edgar_jed(FIN) [id number] Date(s): 10/15/17 - 10/15/17 [facility] Neurosurgery [facility] [address] [facility], [address] [place] [address] [phone] Attending Physician: Zeferino Loera MD Referring Physician: Aaliyah Bingham MD Vital [...] Completed Reduction mammoplasty4 Completed 1(Left) Results Benign, [id number] Social History Social History Type Response Substance Abuse Use: None. Exercise Exercise frequency: Daily. Exercise type: Walking. 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 Alcohol Current, Type Liquor.1 Smoking Status Never smoker; Exposure to Tobacco Smoke None; Cigarette Smoking Last 365 Days No; Reg Smoking Cessation Counseling No entered on: 03/27/18 1social drinker Assessment and Plan No data available for this section
--- OUTSIDE RECORDS SUMMARY | 2018-06-12 06:55 | XMS REPORT | Summary of Care ---
:1960 Author Organization [facility] Internal Medicine [facility] Address [address] [place] [address], [facility] [address] [place] [address]- Encounter HQ Addisonr_jed(FIN) [id number] Date(s): 08/05/17 - 08/06/17 [facility] Internal Medicine [facility] [address] [facility] [place] [address]- [phone] Vital Signs No data available for this [...] Completed Reduction mammoplasty4 Completed 1(Left) Results Benign, [id number] Social History Social History Type Response Substance Abuse Use: None. Exercise Exercise frequency: 1-2 times/week. Alcohol Current, Type Liquor.1 Smoking Status Never smoker; Exposure to Tobacco Smoke None; Cigarette Smoking Last 365 Days No; Reg Smoking Cessation Counseling No entered on: 07/02/17 1social drinker Assessment and Plan No data available for this section
--- OUTSIDE RECORDS SUMMARY | 2018-06-12 06:55 | XMS REPORT | Summary of Care ---
:1960 Author Organization [facility] Internal Medicine [facility] Address [address] [place] [address], [address] [place] [address]- Encounter HQ Edgar_jed(FIN) [id number] Date(s): 04/30/17 - 05/01/17 [facility] Internal Medicine [facility] [address] [facility], [address] [place] [address]- [phone] Vital Signs No data available for this [...] Completed Reduction mammoplasty4 Completed 1(Left) Results Benign, [id number] Social History Social History Type Response Substance Abuse Use: None. Exercise Exercise frequency: 1-2 times/week. Alcohol Current, Type Liquor.1 Smoking Status Never smoker; Exposure to Tobacco Smoke None; Cigarette Smoking Last 365 Days No; Reg Smoking Cessation Counseling No entered on: 07/02/17 1social drinker Assessment and Plan No data available for this section
--- OUTSIDE RECORDS SUMMARY | 2018-06-12 06:55 | XMS REPORT | Summary of Care ---
:1960 Author Organization [facility] Internal Medicine [facility] Address [address] [place] [address], [facility] [address] [place] [address]- Encounter HQ Edgar_jed(KELLIE) [id number] Date(s): 03/27/18 - 03/27/18 [facility] Internal Medicine [facility] [address] [facility] [place] [address]- Discharge Disposition: Home or Self Care Attending Physician: Aaliyah Bingham MD Vital Signs Most recent to oldest [Reference Range]: 1 Height 154.94 cm (03/27/18 12:58 PM) Temperature Oral [96.4-99.1 DegF] 98.6 DegF (03/27/18 12:58 PM) Blood Pressure [90-140/60-90 mmHg] 105/61 mmHg (03/27/18 12:58 PM) Respiratory Rate [14-20 BRMIN] 17 BRMIN (03/27/18 12:58 PM) Peripheral Pulse Rate [60-100 bpm] 88 bpm (03/27/18 12:58 PM) Weight 67.727 kg (03/27/18 12:58 PM) Body Mass Index 28.21 m2 (03/27/18 12:58 PM) Problem List Condition Effective Dates Status [...] # 60 tab, 2 Refill(s) Start Date: 03/27/18 Stop Date: 06/25/18 Status: OrderedbuPROPion 300 mg/24 hours (XL) oral tablet, extended release =1 tab, PO, Daily, # 90 tab, 3 Refill(s), Pharmacy: [id number] Start Date: 03/27/18 Status: Orderedcarvedilol 12.5 mg oral tablet See Instructions, TAKE 1 TABLET BY MOUTH TWICE DAILY, # 180 tab, 2 Refill(s), Pharmacy: [facility] [id number] Start Date: 03/27/18 Status: OrderedDexilant 60 mg oral delayed release capsule 60 mg=1 cap, PO, Daily, # 30 cap, 11 Refill(s), [id number] Start Date: 03/27/18 Status: Orderedisosorbide mononitrate 30 mg oral tablet, extended release 30 mg=1 tab, PO, QAM, # 90 tab, 3 Refill(s), [id number] Start Date: 03/27/18 Status: OrderedLipitor 80 mg oral tablet 80 mg=1 tab, PO, Bedtime, # 90 tab, 3 Refill(s), Pharmacy: [facility] [id number] Start Date: 03/27/18 Status: Orderedlosartan 100 mg oral tablet =1 tab, PO, Daily, # 90 tab, 3 Refill(s), Pharmacy: [id number] Start Date: 03/27/18 Status: OrderedrOPINIRole 2 mg oral tablet, extended release See Instructions, TAKE 1 TABLET BY MOUTH DAILY, # 90 tab, 3 Refill(s), Pharmacy : [facility] [id number] Start Date: 03/27/18 Status: OrderedValtrex 1 g oral tablet 2 gm=2 tab, PO, Q12H, take 2 po ALEXANDRA for fever blister then repeat in 12 hours . total 4 per course.,, # 8 tab, 5 Refill(s), Pharmacy: [facility] [id number] Start Date: 03/27/18 Status: OrderedViibryd 20 mg oral tablet 20 mg=1 tab, PO, Daily, # 7 tab, 0 Refill(s), given to patient Start Date: 03/27/18 Status: OrderedViibryd 20 mg oral tablet 20 mg=1 tab, PO, Daily, # 30 tab, 1 Refill(s), Pharmacy: [id number] Start Date: 03/27/18 Status: Ordered Results No data available for this section Immunizations No data available for this section Procedures Procedure Date Related Diagnosis Body Site Status Lumpectomy 10/2017 Completed Upper GI endoscopy 08/20/13 Completed Colonoscopy 02/05/10 Completed Biopsy of breast1 Completed Lumpectomy2 Completed Primary fusion of cervical spine3 Completed Reduction mammoplasty4 Completed 1(Left) Results Benign, [id number] Social History Social History Type Response Substance Abuse Use: None. Exercise Exercise frequency: Daily. Exercise type: Walking. 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 Alcohol Current, Type Liquor.1 Smoking Status Never smoker; Exposure to Tobacco Smoke None; Cigarette Smoking Last 365 Days No; Reg Smoking Cessation Counseling No entered on: 03/27/18 1social drinker Assessment and Plan No data available for this section
--- OUTSIDE RECORDS SUMMARY | 2018-06-12 06:55 | XMS REPORT | Summary of Care ---
:1960 Author Organization [facility] Address [address] [place], [place] [address] Encounter HQ Edgar_jed(FIN) [id number] Date(s): 03/16/18 - 03/16/[address] [place] Discharge Disposition: Home or Self Care Attending [...] Completed Reduction mammoplasty4 Completed 1(Left) Results Benign, [id number] Social History Social History Type Response Substance Abuse Use: None. Exercise Exercise frequency: Daily. Exercise type: Walking. Employment/School Status: Retired. Alcohol Current, Type Liquor.1 Smoking Status Never smoker; Exposure to Tobacco Smoke None; Cigarette Smoking Last 365 Days No; Reg Smoking Cessation Counseling No entered on: 02/04/18 1social drinker Assessment and Plan No data available for this section
--- OUTSIDE RECORDS SUMMARY | 2018-06-12 06:55 | XMS REPORT | Summary of Care ---
:1960 Author Organization [facility] Outpatient Imaging [place] Address [address] [place] [address]- Encounter HQ Addisonr_jed(FIN) [id number] Date(s): 09/16/17 - 09/16/17 [facility] Outpatient Imaging [address] [address]- [phone] Discharge Disposition: Home or Self Care Attending [...] Completed Reduction mammoplasty4 Completed 1(Left) Results Benign, [id number] Social History Social History Type Response Substance Abuse Use: None. Exercise Exercise frequency: 1-2 times/week. Alcohol Current, Type Liquor.1 Smoking Status Never smoker; Exposure to Tobacco Smoke None; Cigarette Smoking Last 365 Days No; Reg Smoking Cessation Counseling No entered on: 09/12/17 1social drinker Assessment and Plan No data available for this section
--- OUTSIDE RECORDS SUMMARY | 2018-06-12 06:56 | XMS REPORT | Summary of Care ---
:1960 Author Organization [facility] Internal [place] [facility] Address [address] [facility], [address] [place] [address]- Encounter HQ Benitantr_jed(FIN) [id number] Date(s): 09/19/17 - 09/20/17 [facility] Internal Medicine [facility] [address] [facility] [place] [address]- [phone] Vital Signs No data available for this [...] Completed Reduction mammoplasty4 Completed 1(Left) Results Benign, [id number] Social History Social History Type Response Substance Abuse Use: None. Exercise Exercise frequency: Daily. Exercise type: Walking. 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 Alcohol Current, Type Liquor.1 Smoking Status Never smoker; Exposure to Tobacco Smoke None; Cigarette Smoking Last 365 Days No; Reg Smoking Cessation Counseling No entered on: 03/27/18 1social drinker Assessment and Plan No data available for this section
--- OUTSIDE RECORDS SUMMARY | 2018-06-12 06:56 | XMS REPORT | Summary of Care ---
:1960 Author Organization [facility] Internal Medicine [facility] Address [address] [place] [address], [facility] [address] [place] [address]- Encounter HQ Benitantr_jed(FIN) [id number] Date(s): 04/01/18 - 04/02/18 [facility] Internal Medicine [facility] [address] [facility], [address] [place] [address]- Vital Signs No data available for this [...] Completed Reduction mammoplasty4 Completed 1(Left) Results Benign, [id number] Social History Social History Type Response Substance Abuse Use: None. Exercise Exercise frequency: Daily. Exercise type: Walking. 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 Alcohol Current, Type Liquor.1 Smoking Status Never smoker; Exposure to Tobacco Smoke None; Cigarette Smoking Last 365 Days No; Reg Smoking Cessation Counseling No entered on: 03/27/18 1social drinker Assessment and Plan No data available for this section
--- OUTSIDE RECORDS SUMMARY | 2018-06-12 06:56 | XMS REPORT | Summary of Care ---
:1960 Author Organization [facility] Outpatient Imaging [place] Address [address] [place] [address]- Encounter HQ Akash(FIN) [id number] Date(s): 09/16/17 - 09/16/17 [facility] Outpatient Imaging [address] [address]- [phone] Encounter Diagnosis Paresthesia of skin (Final) - 09/19/17 Strain of muscle, fascia and tendon of lower back, initial encounter (Final) - Other intervertebral disc degeneration, lumbar region (Final) - Discharge Disposition: Home or Self Care Attending [...] Completed Reduction mammoplasty4 Completed 1(Left) Results Benign, [id number] Social History Social History Type Response Substance Abuse Use: None. Exercise Exercise frequency: Daily. Exercise type: Walking. 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 Alcohol Current, Type Liquor.1 Smoking Status Never smoker; Exposure to Tobacco Smoke None; Cigarette Smoking Last 365 Days No; Reg Smoking Cessation Counseling No entered on: 03/27/18 1social drinker Assessment and Plan No data available for this section
--- OUTSIDE RECORDS SUMMARY | 2018-06-12 06:56 | XMS REPORT | Summary of Care ---
:1960 Author Organization [facility] [place] [facility] Address [address] [place] [address], [address] [place] [address]- Encounter HQ Encntr_alimargot(FIN) [id number] Date(s): 09/17/17 - 09/18/17 [facility] [place] [facility] [address] [facility], [address] [place] [address] [phone] Vital Signs No data available for this [...] Completed Reduction mammoplasty4 Completed 1(Left) Results Benign, [id number] Social History Social History Type Response Substance Abuse Use: None. Exercise Exercise frequency: Daily. Exercise type: Walking. 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 Alcohol Current, Type Liquor.1 Smoking Status Never smoker; Exposure to Tobacco Smoke None; Cigarette Smoking Last 365 Days No; Reg Smoking Cessation Counseling No entered on: 03/27/18 1social drinker Assessment and Plan No data available for this section
--- OUTSIDE RECORDS SUMMARY | 2018-06-12 06:56 | XMS REPORT | Summary of Care ---
:1960 Author Organization [facility] Internal Medicine [facility] Address [address] [place] [address], [facility] [address] [place] [address]- Encounter HQ Encntr_jed(FIN) [id number] Date(s): 09/16/17 - 09/17/17 [facility] Internal Medicine [facility] [address] [facility] [place] [address]- Vital Signs No data available for this [...] Completed Reduction mammoplasty4 Completed 1(Left) Results Benign, [id number] Social History Social History Type Response Substance Abuse Use: None. Exercise Exercise frequency: Daily. Exercise type: Walking. 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 Alcohol Current, Type Liquor.1 Smoking Status Never smoker; Exposure to Tobacco Smoke None; Cigarette Smoking Last 365 Days No; Reg Smoking Cessation Counseling No entered on: 03/27/18 1social drinker Assessment and Plan No data available for this section
[2018-06-12] MEDS ORDERED: ASPIRIN 81 MG CHEWABLE TABLET ONE (07:23)
[2018-06-12] MEDS ORDERED: ALBUTEROL 2.5 MG/3 ML NEB SOL ONE ×2 (07:24→09:58)
[2018-06-12] MEDS ORDERED: LORAZEPAM 1 MG TABLET ONE (07:24)
[2018-06-12 07:29] LABS: Absolute Lymphocytes (CBC) 2.9 K/uL (0.7-4.9); Absolute Monocytes 0.8 K/uL (0.1-1.3); Absolute Neutrophil 4.4 K/uL (1.8-8.0); Basophils % 0.7 % (0-1.3); Eosinophils % 2.5 % (0-4.4); Hematocrit 42.1 % (36.0-45.0); Lymphocytes % 34.5 % (15.3-44.8); MPV 8.7 fL (7.6-11.3); Monocytes % 9.3 % (3.3-12.3); Protime INR 1.02
[2018-06-12 08:21] LABS: ALT/SGPT 29 U/L (12-78); AST/SGOT 24 U/L (15-37); Albumin 3.9 g/dL (3.4-5.0); Alkaline Phosphatase 103 U/L (45-117); BUN Blood Urea Nitrogen 17 mg/dL (7-18); Bicarbonate 28 mmol/L (21-32); Bilirubin Direct 0.1 mg/dL (0-0.2); Bilirubin Total 0.3 mg/dL (0.2-1.0); Glucose Level 108 mg/dL (74-106); NT PRO-BNP 32 pg/mL (<125); Potassium 4.2 mmol/L (3.5-5.1); Protein, Total 7.5 g/dL (6.4-8.2); Sodium Level 144 mmol/L (136-145); Troponin (Emerg Dept Use Only) < 0.02 ng/mL (0.0-0.045)
--- NOTE | 2018-06-12 08:26 | RAD REPORT ---
EXAM DESCRIPTION: [place] Single View06/12/2018 7:53 am CLINICAL HISTORY: Chest pain COMPARISON: 2009 FINDINGS: The lungs appear clear of acute infiltrate. The heart is normal size. media monitor in place IMPRESSION: No acute abnormalities displayed
[2018-06-12 09:15] LABS: Arterial Blood Carboxyhemoglob 1.2 % (0-1.5); Blood Gas Oxyhemoglobin 94.4 % (94-97); Blood O2 Saturation 96.4 % (92-98.5)
[2018-06-12] MEDS ORDERED: FAMOTIDINE 20 MG TAB ONE (09:59)
[2018-06-12] MEDS ORDERED: predniSONE 20 MG TAB ONE (09:59)
--- NOTE | 2018-06-12 10:05 | ER ---
Nurse's Notes [facility] Name: Nory Sarkar Age: 58 yrs Sex: Female : 1960 Arrival Date: 06/12/2018 Time: 06:49 Bed 17 Private MD: Diagnosis: Bronchitis, not specified as acute or chronic;Chest pain, unspecified Presentation: 06/12 07:04 Presenting complaint: Patient states: "I was having some chest pain that started at jd3 about 0600. I thought it was just anxiety, but it got worse and I got short of breath and wheezing.". Transition of care: patient was not received from another setting of care. Onset of symptoms was June 12, 2018. Risk Assessment: Do you want to hurt yourself or someone else? Patient reports no desire to harm self or others. Initial Sepsis Screen: Does the patient meet any 2 criteria? RR > 20 per min. No. Patient's initial sepsis screen is negative. Does the patient have a suspected source of infection? No. Patient's initial sepsis screen is negative. Care prior to arrival: None. 07:04 Method Of Arrival: Wheelchair jd3 07:04 Acuity: PÉREZ 2 jd3 Historical: - Allergies: 07:16 DPT; jd3 - Home Meds: 07:16 atorvastatin 80 mg oral tab [Active]; Viibryd 20 mg oral tab [Active]; Eliquis 5 mg jd3 oral tab [Active]; Protonix 40 mg Oral grps [Active]; isosorbide dinitrate 30 mg Oral tab [Active]; carvedilol 12.5 mg oral tab [Active]; digoxin 125 mcg Oral tab [Active]; Belviq 10 mg oral tab [Active]; Wellbutrin Oral [Active]; losartan 100 mg oral tab [Active]; ropinirole 2 mg oral tab [Active]; gabapentin oral oral [Active]; - PMHx: 07:16 Myocardial infarction; TIA; jd3 - PSHx: 07:16 cadiac cath; jd3 - Immunization history:: Adult Immunizations up to date. - Social history:: Smoking status: unknown. - Ebola Screening: : Patient negative for fever greater than or equal to 101.5 degrees Fahrenheit, and additional compatible Ebola Virus Disease symptoms. Screenin:15 Abuse screen: Denies threats or abuse. Nutritional screening: No deficits noted. em Tuberculosis screening: No symptoms or risk factors identified. Fall Risk None identified. Assessment: 07:10 General: Appears in no apparent distress. uncomfortable, Behavior is cooperative, em anxious, crying, Denies fever. Pain: Complains of pain in anterior aspect of left upper chest Pain does not radiate. Pain currently is 5 out of 10 on a pain scale. Quality of pain is described as pressure, squeezing, Pain began 1 hour ago. Neuro: Level of Consciousness is awake, alert, obeys commands, Oriented to person, place, time, situation. Cardiovascular: Heart tones S1 S2 present Capillary refill < 3 seconds Patient's skin is warm and dry. Rhythm is sinus rhythm. Respiratory: Reports cough that is non-productive, Airway is patent Respiratory effort is even, unlabored, Respiratory pattern is regular, symmetrical, Breath sounds are diminished bilaterally. GI: No signs and/or symptoms were reported involving the gastrointestinal system. Derm: Skin is intact, is healthy with good turgor, Skin is pink, warm \\T\\ dry. Musculoskeletal: Capillary refill < 3 seconds, Range of motion: intact in all extremities. 07:20 General: I agree with previous assessment. hb 08:31 Reassessment: Patient appears in no apparent distress at this time. No changes from em previously documented assessment. Patient is alert, oriented x 3, equal unlabored respirations, skin warm/dry/pink. rates pain 4/10 Patient states feeling better. Patient states symptoms have improved. 09:37 Reassessment: Patient appears in no apparent distress at this time. No changes from em previously documented assessment. Patient is alert, oriented x 3, equal unlabored respirations, skin warm/dry/pink. Patient states feeling better. 10:38 Reassessment: Patient appears in no apparent distress at this time. Patient and/or em family updated on plan of care and expected duration. Pain level reassessed. Patient is alert, oriented x 3, equal unlabored respirations, skin warm/dry/pink. Vital Signs: 07:17 BP 163 / 105; Pulse 76; Resp 24 S; Pulse Ox 98% on 2 lpm NC; Weight 66.22 kg (R); jd3 Height 5 ft. 2 in. (157.48 cm) (R); Pain 10/10; 07:34 BP 148 / 101; Pulse 73; Resp 18; Pulse Ox 100% on Nebulizer Mask; Pain 5/10; em 07:34 Temp 98.2(O); em 08:30 BP 138 / 75; Pulse 77; Resp 16; Pulse Ox 100% on 2 lpm NC; em 08:55 Pulse Ox 95% on R/A; em 09:30 BP 133 / 82; Pulse 80; Resp 16; Pulse Ox 96% on R/A; em 10:38 BP 135 / 80; Pulse 82; Resp 18; Pulse Ox 97% on R/A; em 07:17 Body Mass Index 26.70 (66.22 kg, 157.48 cm) jd3 ED Course: 06:49 Patient arrived in ED. am2 06:59 Emmanuelle Juarez FNP-C [facility]. snw 06:59 Ovi Caal MD is Attending Physician. snw 07:00 Inserted saline lock: 20 gauge in right antecubital area, using aseptic technique. jd3 Blood collected. 07:00 Oxygen administration via nasal cannula \\T\\ 2L/min Response to oxygen therapy: symptoms jd3 improved. 07:06 Triage completed. jd3 07:15 Patient has correct armband on for positive identification. Bed in low position. Call em light in reach. Side rails up X2. Adult w/ patient. environmental monitoring technician on. Pulse ox on. NIBP on. 07:18 Arm band placed on. EKG completed in triage. Results shown to MD. jd3 07:21 Wero Torres LVN is Primary Nurse. em 07:44 X-ray completed. Portable x-ray completed in exam room. Patient tolerated procedure jb2 well. 07:53 XRAY Chest (1 view) In Process Unspecified. EDMS 10:54 No provider procedures requiring assistance completed. IV discontinued, intact, em bleeding controlled, No redness/swelling at site. Pressure dressing applied. Administered Medications: 07:19 Drug: Aspirin Chewable Tablet 324 mg Route: PO; em 07:38 Follow up: Response: No adverse reaction em 07:21 Drug: Ativan 2 mg Route: PO; em 08:30 Follow up: Response: No adverse reaction; Marked relief of symptoms em 07:22 Drug: Albuterol 2.5 mg Route: Inhalation; em 07:22 Drug: Albuterol 2.5 mg Route: Inhalation; em 07:22 Drug: Albuterol 2.5 mg Route: Inhalation; em 09:52 Drug: Pepcid 20 mg Route: PO; em 10:32 Follow up: Response: No adverse reaction em 09:52 Drug: predniSONE 40 mg Route: PO; em 10:32 Follow up: Response: No adverse reaction em 09:52 Drug: Albuterol 1.25 mg Route: Inhalation; em 10:10 Follow up: Response: No adverse reaction em Outcome: 10:05 Discharge ordered by MD. ventura 10:54 Discharged to home via wheelchair, with family. em 10:54 Condition: good 10:54 Discharge instructions given to patient, family, Instructed on discharge instructions, follow up and referral plans. medication usage, Demonstrated understanding of instructions, follow-up care, medications, Prescriptions given X 3. 10:57 Patient left the ED. em Signatures: Dispatcher [employer] EDMS Emmanuelle Juarez, ANALYTICAL CLERK-C ANALYTICAL CLERK-Csnw Pablo Lama jb2 Wero Torres, PACK OPERATOR PACK OPERATOR em Maira Miranda, RN RN Keyana Poe [facility] Silviano Richards RN RN jd3
--- NOTE | 2018-06-12 10:05 | EDPHYS ---
Physician Documentation [facility] Name: Nory Sarkar Age: 58 yrs Sex: Female : 1960 Arrival Date: 06/12/2018 Time: 06:49 Bed 17 Private MD: ED Physician Ovi Caal HPI: 06/12 07:10 This 58 yrs old Female presents to ER via Wheelchair with complaints of Chest snw Pain, Breathing Difficulty. 07:10 Onset: The symptoms/episode began/occurred suddenly, today, at 06:00. Associated signs snw and symptoms: Pertinent positives: chest pain. The patient has experienced a previous episode, approximately 4 years ago. The patient has been recently seen by a physician: a service center representative, echo last week at [facility]'s office ([facility]). Historical: - Allergies: 07:16 DPT; jd3 - Home Meds: 07:16 atorvastatin 80 mg oral tab [Active]; Viibryd 20 mg oral tab [Active]; Eliquis 5 mg jd3 oral tab [Active]; Protonix 40 mg Oral grps [Active]; isosorbide dinitrate 30 mg Oral tab [Active]; carvedilol 12.5 mg oral tab [Active]; digoxin 125 mcg Oral tab [Active]; Belviq 10 mg oral tab [Active]; Wellbutrin Oral [Active]; losartan 100 mg oral tab [Active]; ropinirole 2 mg oral tab [Active]; gabapentin oral oral [Active]; - PMHx: 07:16 Myocardial infarction; TIA; jd3 - PSHx: 07:16 cadiac cath; jd3 - Immunization history:: Adult Immunizations up to date. - Social history:: Smoking status: unknown. - Ebola Screening: : Patient negative for fever greater than or equal to 101.5 degrees Fahrenheit, and additional compatible Ebola Virus Disease symptoms. ROS: 07:08 Constitutional: Negative for fever, chills, and weight loss, Eyes: Negative for injury, snw pain, redness, and discharge, ENT: Negative for injury, pain, and discharge, Neck: Negative for injury, pain, and swelling, Abdomen/GI: Negative for abdominal pain, nausea, vomiting, diarrhea, and constipation, Back: Negative for injury and pain, : Negative for injury, bleeding, discharge, and swelling, MS/Extremity: Negative for injury and deformity, Skin: Negative for injury, rash, and discoloration, Neuro: Negative for headache, weakness, numbness, tingling, and seizure. 07:08 Cardiovascular: Positive for chest pain, of the anterior aspect of left upper chest and left breast. 07:08 Respiratory: Positive for cough, with no reported sputum, wheezing, inspiratory. Exam: 07:08 Head/Face: Normocephalic, atraumatic. Eyes: Pupils equal round and reactive to light, snw extra-ocular motions intact. Lids and lashes normal. Conjunctiva and sclera are non-icteric and not injected. Cornea within normal limits. Periorbital areas with no swelling, redness, or edema. ENT: Nares patent. No nasal discharge, no septal abnormalities noted. Tympanic membranes are normal and external auditory canals are clear. Oropharynx with no redness, swelling, or masses, exudates, or evidence of obstruction, uvula midline. Mucous membranes moist. Neck: Trachea midline, no thyromegaly or masses palpated, and no cervical lymphadenopathy. Supple, full range of motion without nuchal rigidity, or vertebral point tenderness. No Meningismus. Chest/axilla: Normal chest wall appearance and motion. Nontender with no deformity. No lesions are appreciated. 07:08 Abdomen/GI: Soft, non-tender, with normal bowel sounds. No distension or tympany. No guarding or rebound. No evidence of tenderness throughout. Back: No spinal tenderness. No costovertebral tenderness. Full range of motion. Skin: Warm, dry with normal turgor. Normal color with no rashes, no lesions, and no evidence of cellulitis. MS/ Extremity: Pulses equal, no cyanosis. Neurovascular intact. Full, normal range of motion. Neuro: Awake and alert, GCS 15, oriented to person, place, time, and situation. Cranial nerves II-XII grossly intact. Motor strength 5/5 in all extremities. Sensory grossly intact. Cerebellar exam normal. Normal gait. 07:08 Constitutional: The patient appears alert, awake, anxious, restless, uncomfortable. 07:08 Cardiovascular: Rate: normal, Rhythm: regular, Pulses: no pulse deficits are appreciated, Heart sounds: normal, Edema: is not appreciated, JVD: is not appreciated. 07:08 Respiratory: mild respiratory distress is noted, Respirations: shallow respirations, tachypnea, Breath sounds: wheezing: that is moderate, is heard diffusely. 07:08 Psych: Behavior/mood is anxious. Vital Signs: 07:17 BP 163 / 105; Pulse 76; Resp 24 S; Pulse Ox 98% on 2 lpm NC; Weight 66.22 kg (R); jd3 Height 5 ft. 2 in. (157.48 cm) (R); Pain 10/10; 07:34 BP 148 / 101; Pulse 73; Resp 18; Pulse Ox 100% on Nebulizer Mask; Pain 5/10; em 07:34 Temp 98.2(O); em 08:30 BP 138 / 75; Pulse 77; Resp 16; Pulse Ox 100% on 2 lpm NC; em 08:55 Pulse Ox 95% on R/A; em 09:30 BP 133 / 82; Pulse 80; Resp 16; Pulse Ox 96% on R/A; em 10:38 BP 135 / 80; Pulse 82; Resp 18; Pulse Ox 97% on R/A; em 07:17 Body Mass Index 26.70 (66.22 kg, 157.48 cm) jd3 MDM: 06:59 Patient medically screened. snw 10:02 Data reviewed: vital signs, nurses notes. Data interpreted: Pulse oximetry: on room air snw is 96 %. Interpretation: acceptable. Counseling: I had a detailed discussion with the patient and/or guardian regarding: the historical points, exam findings, and any diagnostic results supporting the discharge/admit diagnosis, the presence of at least one elevated blood pressure reading (>120/80) during this emergency department visit, lab results, radiology results, the need for outpatient follow up, to return to the emergency department if symptoms worsen or persist or if there are any questions or concerns that arise at home. Response to treatment: the patient's symptoms have markedly improved after treatment. Physician consultation: Aaliyah Bingham was called at 10:03, was contacted at 10:03, regarding consult, patient's condition, outpatient follow-up, Dr. Bingham agrees with plan of care. Steroids for outpt, requests Ativan q 6 hour x 48 hours be given. 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 06/12 07:03 Order name: Basic Metabolic Panel snw 06/12 07:03 Order name: CBC with Diff w 06/12 07:03 Order name: LFT's 06/12 07:03 Order name: Magnesium 06/12 07:03 Order name: NT PRO-BNP 06/12 07:03 Order name: PT-INR 06/12 07:03 Order name: Troponin (emerg Dept Use Only); Complete Time: 08:32 snw 06/12 07:03 Order name: Flu; Complete Time: 07:50 snw 06/12 07:03 Order name: Blood Culture Adult (2) 06/12 07:03 Order name: Digoxin; Complete Time: 08:32 snw 06/12 07:03 Order name: Lactate; Complete Time: 09:44 snw 06/12 07:03 Order name: Procalcitonin; Complete Time: 08:15 snw 06/12 07:03 Order name: Basic Metabolic Panel; Complete Time: 08:32 EDMS 06/12 07:03 Order name: CBC with Automated Diff; Complete Time: 07:50 EDMS 06/12 07:03 Order name: XRAY Chest (1 view); Complete Time: 08:32 snw 06/12 07:03 Order name: EKG; Complete Time: 07:04 snw 06/12 07:03 Order name: Cardiac monitoring; Complete Time: 07:22 snw 06/12 07:03 Order name: EKG - Nurse/Tech; Complete Time: 07:22 snw 06/12 07:03 Order name: IV Saline Lock; Complete Time: 07:22 snw 06/12 07:03 Order name: Liver (Hepatic) Function; Complete Time: 08:32 EDMS 06/12 07:03 Order name: Magnesium; Complete Time: 08:32 EDMS 06/12 07:03 Order name: NT PRO-BNP; Complete Time: 08:32 EDMS 06/12 07:03 Order name: Protime (+INR); Complete Time: 07:50 EDMS 06/12 08:55 Order name: ABG; Complete Time: 09:44 hb 06/12 07:03 Order name: Labs collected and sent; Complete Time: 07:22 snw 06/12 07:03 Order name: O2 Per Protocol; Complete Time: 07:23 snw 06/12 07:03 Order name: O2 Sat Monitoring; Complete Time: 07:23 snw Administered Medications: 07:19 Drug: Aspirin Chewable Tablet 324 mg Route: PO; em 07:38 Follow up: Response: No adverse reaction em 07:21 Drug: Ativan 2 mg Route: PO; em 08:30 Follow up: Response: No adverse reaction; Marked relief of symptoms em 07:22 Drug: Albuterol 2.5 mg Route: Inhalation; em 07:22 Drug: Albuterol 2.5 mg Route: Inhalation; em 07:22 Drug: Albuterol 2.5 mg Route: Inhalation; em 09:52 Drug: Pepcid 20 mg Route: PO; em 10:32 Follow up: Response: No adverse reaction em 09:52 Drug: predniSONE 40 mg Route: PO; em 10:32 Follow up: Response: No adverse reaction em 09:52 Drug: Albuterol 1.25 mg Route: Inhalation; em 10:10 Follow up: Response: No adverse reaction em Disposition: 06/12/18 10:05 Discharged to Home. Impression: Bronchitis, not specified as acute or chronic, Chest pain, unspecified. - Condition is Stable. - Discharge Instructions: Acute Bronchitis, Adult, Nonspecific Chest Pain, Hypertension, How to Use an Inhaler, Cool Mist Vaporizer, Aspirin and Your Heart. - Prescriptions for Ativan 1 mg Oral Tablet - take 1 tablet by ORAL route every 6-8 hours As needed; 10 tablet. Prednisone 20 mg Oral Tablet - take 2 tablet by ORAL route once daily for 5 days; 10 tablet. Albuterol Sulfate 90 mcg/actuation - inhale 1-2 puff by INHALATION route every 4-6 hours; 1 Inhaler. - Work release form, Medication Reconciliation Form, Thank You Letter, Antibiotic Education, Prescription Opioid Use form. - Follow up: Private Physician; When: 2 - 3 days; Reason: Recheck today's complaints, Continuance of care, Re-evaluation by your physician. Follow up: Emergency Department; When: As needed; Reason: Worsening of condition. Addendum: 06/13/2018 15:13 Co-signature as Attending Physician, Ovi Caal MD Available for consultation at p s1 all times . Signatures: Dispatcher [employer] EDMS Emmanuelle Juarez, HAMILTON-C CHIEF ENGINEER PRODUCTION-Csnw Wero Torres, POLLUTION CONTROL TECHNICIAN POLLUTION CONTROL TECHNICIAN Silviano Branham, RN RN jd3 Ovi Caal MD MD ps1 Corrections: (The following items were deleted from the chart) 06/12 10:05 10:05 06/12/2018 10:05 Discharged to Home. Impression: Bronchitis, not specified as snw acute or chronic. Condition is Stable. Forms are Medication Reconciliation Form, Thank You Letter, Antibiotic Education, Prescription Opioid Use. Follow up: Private Physician; When: 2 - 3 days; Reason: Recheck today's complaints, Continuance of care, Re-evaluation by your physician. Follow up: Emergency Department; When: As needed; Reason: Worsening of condition. snw 10:57 10:05 06/12/2018 10:05 Discharged to Home. Impression: Bronchitis, not specified as em acute or chronic; Chest pain, unspecified. Condition is Stable. Forms are Medication Reconciliation Form, Thank You Letter, Antibiotic Education, Prescription Opioid Use. Follow up: Private Physician; When: 2 - 3 days; Reason: Recheck today's complaints, Continuance of care, Re-evaluation by your physician. Follow up: Emergency Department; When: As needed; Reason: Worsening of condition. snw
--- NOTE | 2018-06-12 10:57 | EKG ---
Test Date: 2018-06-12 Test Time: 06:51:51 Sports Leadership Instructor: SARA MEASUREMENT RESULTS: Intervals: Rate: 69 [place]: 138 QRSD: 82 QT: 374 QTc: 400 [place]: P: 59 [place]: 138 QRS: 18 T: 24 INTERPRETIVE STATEMENTS: Normal sinus rhythm Normal ECG Compared to ECG 05/12/2000 18:41:00 No significant changes Electronically Signed On 06-12-18 10:56:34 CDT by Gianfranco Downs
== END 2018-06-12 10:57 | disposition home or self-care (01) ==
LOC: ER 06:48
DX: J40 Bronchitis, not specified as acute or chronic (principal); I25.2 Old myocardial infarction; Z79.01 Long term (current) use of anticoagulants; Z88.7 Allergy status to serum and vaccine; Z86.73 Personal history of transient ischemic attack (TIA), and cerebral infarction without residual deficits
CPT/HCPCS: 36415; 71045; 80048; 80076; 80162; 82805; 83605; 83735; 83880; 84145; 84484; 85025; 85610; 87040; 87804; 93005; 99285; J7512